=== PATIENT | female | born 1955 | race Caucasian/White ===

== ENCOUNTER 2019-05-14 12:32 | Inpatient (IN) | payer BC ==
--- NOTE | 2019-05-14 13:35 | PDOC ---
History of Present Illness - General Chief Complaint: Respiratory Stated Complaint: COUGH Time Seen by Provider: 05/14/19 13:35 - History of Present Illness Initial Comments: HPI: 64yo F with PMH of HTN, HLD, COPD, smoking presenting with shortness of breath. Patient has been feeling unwell since . On 04/26 she saw her doctor and was prescribed promethazine and azithromycin. She was not improving and called the clinic and was sent a prescription for a medrol dose-tobi. She was not improving yet again and was sent rosa, afrin, and nose drops. On 05/11, she saw her doctor and was given a course of levaquin and prednisone 20mg BID. Patient reports sick contacts as her granddaughters have had RSV. Did get a flu shot this season in February. Is unsure if she is experiencing a COPD exacerbation. Decided to come to the ED when she realized she was dyspneic on exertion last night-- usually she is able to walk up stairs without difficulty, but is now short of breath when doing so. Reports chest tightness. Denies fevers , but endorses chills. Pulmonary: Dr. Hernandez PCP: Dr. Phillips ROS: Constitutional: no fever, no chills HEENT: no throat pain, no dysphagia Cardiovascular: +chest tightness, no palpitations Respiratory: +cough, +shortness of breath Gastrointestinal: +nausea, +vomiting Genitourinary: no dysuria, no hematuria Musculoskeletal: no myalgia, no arthralgia Skin: no rash, no itching Neurologic: +headache, no weakness PE: General: Awake, alert, and fully oriented, in no acute distress Head: No signs of trauma Eyes: EOMI, sclera anicteric ENT: Moist mucus membranes Neck: Normal ROM, supple Lungs: Lungs clear, Normal breath sounds Cardio: Regular rhythm, S1 and S2 present Abdomen: Soft, nontender. No guarding, no rebound, no masses Extremities: Normal range of motion, Distal pulses present, No calf tenderness SKIN: Warm, Dry, normal turgor Neurologic: Cranial nerves II through XII grossly intact. Normal speech ED Course/MDM: DDX including but not limited to viral syndrome, COPD exacerbation, UTI, PNA, influenza, ACS, PE, CHF Labs, EKG, CXR 05/14/19 13:35 EKG: rate 85, QTc 445, NSR patient requested water. Vomited for a second time. Zofran ordered. 05/14/19 15:57 CBC WBC 13.8 K/mm3 (4.0-10.0) H 05/14/19 14:40 RBC 5.98 M/mm3 (3.60-5.2) H 05/14/19 14:40 Hgb 15.4 GM/dL (10.7-15.3) H 05/14/19 14:40 Hct 47.3 % (32.4-45.2) H 05/14/19 14:40 MCV 79.2 fl (80-96) L 05/14/19 14:40 MCH 25.8 pg (25.7-33.7) 05/14/19 14:40 MCHC 32.6 g/dl (32.0-36.0) 05/14/19 14:40 RDW 14.6 % (11.6-15.6) 05/14/19 14:40 Plt Count 276 K/MM3 (134-434) 05/14/19 14:40 MPV 6.7 fl (7.5-11.1) L 05/14/19 14:40 Absolute Neuts (auto) 11.5 K/mm3 (1.5-8.0) H 05/14/19 14:40 Neutrophils % 83.5 % (42.8-82.8) H 05/14/19 14:40 Lymphocytes % 10.5 % (8-40) 05/14/19 14:40 Monocytes % 4.9 % (3.8-10.2) 05/14/19 14:40 Eosinophils % 0.6 % (0-4.5) 05/14/19 14:40 Basophils % 0.5 % (0-2.0) 05/14/19 14:40 Nucleated RBC % 0 % (0-0) 05/14/19 14:40 Mild leukocytosis CMP Sodium 141 mmol/L (136-145) 05/14/19 14:40 Potassium 4.0 mmol/L (3.5-5.1) 05/14/19 14:40 Chloride 103 mmol/L (98-107) 05/14/19 14:40 Carbon Dioxide 30 mmol/L (21-32) 05/14/19 14:40 Anion Gap 8 MMOL/L (8-16) 05/14/19 14:40 BUN 26.3 mg/dL (7-18) H 05/14/19 14:40 Creatinine 1.1 mg/dL (0.55-1.3) 05/14/19 14:40 Est GFR (CKD-EPI)AfAm 61.44 05/14/19 14:40 Est GFR (CKD-EPI)NonAf 53.01 05/14/19 14:40 Random Glucose 116 mg/dL (74-106) H 05/14/19 14:40 Calcium 9.4 mg/dL (8.5-10.1) 05/14/19 14:40 Total Bilirubin 0.8 mg/dL (0.2-1) 05/14/19 14:40 AST 9 U/L (15-37) L 05/14/19 14:40 ALT 25 U/L (13-61) 05/14/19 14:40 Alkaline Phosphatase 107 U/L (45-117) 05/14/19 14:40 Creatine Kinase 46 U/L (26-192) 05/14/19 14:40 Troponin I < 0.02 ng/ml (0.00-0.05) 05/14/19 14:40 B-Natriuretic Peptide 84.7 pg/ml (5-125) 05/14/19 14:40 Total Protein 7.2 g/dl (6.4-8.2) 05/14/19 14:40 Albumin 4.0 g/dl (3.4-5.0) 05/14/19 14:40 Electrolytes unremarkable BUN elevated Cr normal No transaminitis BNp normal Tpn negative UA negative for infection Influenza negative CXR as reported by radiology: " EXAM#: TYPE/EXAM: RESULT: [id number] RAD/CHEST PA LAT Chest : Shortness of breath 2 views of the chest have been submitted. Since the prior study of 01/28/2010 there is no change of an adverse nature. There are clear lungs, normal mediastinum and sharp angles. There is mild hyperaeration. There is slight rotation to the left. Impression: No acute chest pathology. No significant change. " Courtesy call placed to Dr. Phillips, ; per call service, he is not available. Will send microblog to [email or web address] 05/14/19 18:04 Discussed case with inpatient team who accepted patient for admission under Dr. Allen. 05/14/19 18:58 Past History - Past Medical History Allergies/Adverse Reactions: Allergies Allergy/AdvReac Type Severity Reaction Status Date / Time codeine Allergy Verified 05/14/19 12:43 Home Medications: Ambulatory Orders Atorvastatin Calcium [Lipitor] 20 mg PO HS 05/14/19 Budesonide/Formeterol Fumarate [SYMBICORT 160/4.5mcg -] 2 inhaler IN BID Promethazine HCl [Phenergan Plain 6.25 MG/5 ML -] 10 ml PO ASDIR PRN 05/14/19 Verapamil HCl ER [Calan Sr] 240 mg PO DAILY 05/14/19 levoFLOXacin [Levaquin -] 500 mg PO DAILY 05/14/19 predniSONE [Deltasone -] 20 mg PO ASDIR 05/14/19 - Psycho Social/Smoking Cessation Hx Smoking History: Current every day smoker Information on smoking cessation initiated: Yes *Physical Exam - Vital Signs Last Vital Signs Temp Pulse Resp BP Pulse Ox 98 F 100 H 20 133/77 95 05/14/19 12:46 05/14/19 12:46 05/14/19 12:46 05/14/19 12:46 05/14/19 12:46 ED Treatment Course - LABORATORY CBC & Chemistry Diagram: 05/14/19 14:40 05/14/19 14:40 Discharge - Discharge Information Problems reviewed: Yes Clinical Impression/Diagnosis: COPD exacerbation Condition: Guarded Disposition: HOME - Admission Yes - Follow up/Referral Referrals: Kj Phillips MD [Primary Care Provider] - - Patient Discharge Instructions - Post Discharge Activity
[2019-05-14] MEDS ORDERED: ALBUTEROL SO4 2.5/IPRATROPIUM 0.5 INH SOL 3 ML VIAL.NEB. NEB ONE ×2 (13:57→14:42)
[2019-05-14 15:10] LABS: BASO % 0.5 % (0-2.0); EOS % 0.6 % (0-4.5); HEMATOCRIT 47.3 % (32.4-45.2); HEMOGLOBIN 15.4 GM/dL (10.7-15.3); LYMPH % 10.5 % (8-40); MCH 25.8 pg (25.7-33.7); MCHC 32.6 g/dl (32.0-36.0); MEAN CELL VOLUME 79.2 fl (80-96); MEAN PLT VOLUME 6.7 fl (7.5-11.1); MONO % 4.9 % (3.8-10.2); NEUT % 83.5 % (42.8-82.8); PLATELET COUNT 276 K/MM3 (134-434); RBC 5.98 M/mm3 (3.60-5.2); RDW 14.6 % (11.6-15.6); WHITE BLOOD COUNT 13.8 K/mm3 (4.0-10.0)
[2019-05-14 15:22] LABS: INR 1.01 (0.83-1.09); PROTHROMBIN TIME (PATIENT) 11.9 SEC (9.7-13.0)
[2019-05-14 15:52] LABS: BILIRUBIN,TOTAL 0.8 mg/dL (0.2-1); BLOOD UREA NITROGEN 26.3 mg/dL (7-18); CALCIUM 9.4 mg/dL (8.5-10.1); CREATININE 1.1 mg/dL (0.55-1.3); TOT PROT 7.2 g/dl (6.4-8.2)
[2019-05-14] MEDS ORDERED: ONDANSETRON 4 MG/2 ML VIAL IVPUSH ONE (15:55)
[2019-05-14 16:01] LABS: N-TERMINAL BNP 84.7 pg/ml (5-125)
[2019-05-14] MEDS ORDERED: ONDANSETRON 4 MG/2 ML VIAL ONE (16:29)
[2019-05-14] MEDS ORDERED: methylPREDNISolone NA SUCC 125 MG/2 ML VIAL IVPUSH ONE (17:07)
[2019-05-14] MEDS ORDERED: SODIUM CHLORIDE 1,000 ML IV STA (17:12)
--- NOTE | 2019-05-14 17:24 | PDOC ---
Attending Attestation - Resident Resident Name: Beverly Jerry - ED Attending Attestation I have performed the following: I have examined & evaluated the patient, The case was reviewed & discussed with the resident, I agree w/resident's findings & plan, Exceptions are as noted - HPI HPI: 05/14/19 17:23 64 F with h/o HTN, HLD, COPD, presenting to ED with SOB. Pt has been having about 2 weeks of symptoms. Was tx'ed as outpt with Z-pack and levaquin, as well as steroids. However, pt reports persistent symptoms. Denies F/C. Denies chest pain. Pt notes that today she began to also have N+V+D. Denies abdominal pain. - Physicial Exam PE: 05/14/19 17:23 See resident exam - Medical Decision Making 05/14/19 17:24 64 F with likely COPD exacerbation. Has been tx'ed as outpt with steroids and 2 courses of abx, with no improvement. - labs - CXR - Nebs, steroids
[2019-05-14] MEDS ORDERED: methylPREDNISolone NA SUCC 125 MG/2 ML VIAL ONE (17:26)
[2019-05-14 17:49] LABS: EPI CELLS 2.6 /HPF (0-5/HPF); HYALINE CASTS 38 /lpf (0-8); URINE APPEARANCE CLOUDY; URINE BACTERIA 4.5 /hpf (NEGATIVE); URINE BILIRUBIN 2+ (NEGATIVE); URINE COLOR DK YELLOW; URINE GLUCOSE (UA) NEGATIVE (NEGATIVE); URINE KETONE TRACE (NEGATIVE); URINE LEUK ESTERASE NEGATIVE (NEGATIVE); URINE NITRITE NEGATIVE (NEGATIVE); URINE PROTEIN 1+ (NEGATIVE); URINE RBC 2 /hpf (0-4); URINE WBC 2 /hpf (0-5)
[2019-05-14 19:03] LABS: URINE CRYSTALS MANY /hpf
--- NOTE | 2019-05-14 19:18 | PN ---
Teaching Attending Note Name of Resident: Osvaldo Matute ATTENDING PHYSICIAN STATEMENT I saw and evaluated the patient. I reviewed the resident's note and discussed the case with the resident. I agree with the resident's findings and plan as documented. SUBJECTIVE: Patient is a 64 year old woman with a PMH of HTN, HLD, COPD and Tobacco use presenting with shortness of breath. Patient has been feeling unwell since . On 04/26 she saw her doctor and was prescribed promethazine and azithromycin. She was not improving and called the clinic and was sent a prescription for a medrol dose-tobi. She was not improving yet again and was sent rosa, afrin, and nose drops. On 05/11, she saw her doctor and was given a course of levaquin and prednisone 20mg BID. Patient reports sick contacts as her granddaughters have had RSV. Did get a Flu vaccine this season in February. Is unsure if she is experiencing a COPD exacerbation. Decided to come to the ED when she realized she was dyspneic on exertion last night-- usually she is able to walk up stairs without difficulty, but is now short of breath when doing so. Reports chest tightness. Denies fevers, but has chills. Vomited twice and had a couple of loose BMs. No recent travels. Denies alcohol or illicit drug use. OBJECTIVE: Alert Vital Signs Period Temp Pulse Resp BP Sys/Cain Pulse Ox Last 24 Hr 98 F 100 20 133/77 95 HEENT: No Jaundice, eye redness or discharge, PERRLA, EOMI. Dry lips; Normocephalic, atraumatic. External ears are normal and hearing is grossly intact. No nasal discharge. Neck: Supple, nontender. No palpable adenopathy or thyromegaly. No JVD Chest: Good effort. Clear to auscultation and percussion. Heart: Regular. No S3, rub or murmur Abdomen: Not distended, soft, nontender and no HSM. No rebound or guarding. Normal bowel sounds. Ext: Peripheral pulses intact. No leg edema. Skin: Warm and dry. No petechiae, rash or ecchymosis. Neuro: Alert. Oriented x3. CN 2-12 grossly intact. Sensation grossly intact in all four extremities and DTR are symmetric. Psych: Appropriate mood and affect. Good insight. Home Medications Medication Instructions Recorded Atorvastatin Calcium [Lipitor] 20 mg PO HS 05/14/19 Budesonide/Formeterol Fumarate 2 inhaler IN BID 05/14/19 [SYMBICORT 160/4.5mcg -] Promethazine HCl [Phenergan Plain 10 ml PO ASDIR PRN 05/14/19 6.25 MG/5 ML -] Verapamil HCl ER [Calan Sr] 240 mg PO DAILY 05/14/19 levoFLOXacin [Levaquin -] 500 mg PO DAILY 05/14/19 predniSONE [Deltasone -] 20 mg PO ASDIR 05/14/19 Abnormal Lab Results 05/14/19 05/14/19 05/14/19 14:40 14:40 17:03 WBC 13.8 H RBC 5.98 H Hgb 15.4 H Hct 47.3 H MCV 79.2 L MPV 6.7 L Absolute Neuts (auto) 11.5 H Neutrophils % 83.5 H BUN 26.3 H Random Glucose 116 H AST 9 L Urine Protein 1+ H Urine Ketones Trace H Urine Bilirubin 2+ H ASSESSMENT AND PLAN: 1. COPD exacerbation/Viral syndrome - CXR shows hyperinflation with increased interstitial markings. Flu swab negative. EKG shows NSR with no significant ST- T wave changes. Being treated with Duoneb, Symbicort, Solumedrol, Azithromycin and Rocephin. Erythrocytosis likely due to smoking. Hydrate with IV NS gently. Will get ECHO and check HbA1c. Will continue comprehensive care for all of patients comorbid conditions. 2. Tobacco Use Counseled on risks associated with tobacco use. We will provide patient all the necessary assistance to facilitate smoking cessation and prescribe Nicotine patch. 3. Hypertension - Restart suitable outpatient antihypertensive drugs when clinically appropriate. Revise regimen to ensure [id number] excellent BP control and chromosomal disorders counselor patient on the injurious effects of uncontrolled hypertension. Nonpharmacologic measures to control hypertension like weight loss , salt restriction and exercise discussed. Importance of adherence to treatment regimen and attainment of normotension emphasized. 4. DVT prophylaxis - Lovenox 40 mg SQ q 24 hours. 5. Advance directives - Full code
--- NOTE | 2019-05-14 19:52 | HP ---
CHIEF COMPLAINT: SOB PCP: Dr. Phillips HISTORY OF PRESENT ILLNESS: 64 y/o female with PMH HTN, HLD, COPD and an active smoker c/o SOB for 1 month/since Thanksgiving family dinner. She states that her granddaughters and adult son whom live upstairs in their private home were recently ill, including one child with RSV. Initially her primary symptoms were lethargy, vague headache , and cough productive of green/yellow phlegm. On 26 Apr 2019 she visited her PCP and was tx with promethazine and azithromycin. She experienced mild symptom relief but developed SOB. The SOB progressed and she was then rx medrol dose pack along with rosa and afrin. She experienced no symptoms relief and on 11 May 2019 she was rx levaquin and prednisone 20 mg PO BID. She used the steroids for 6 days. The DRIVER resolved early on and her persisting symptoms included cough , lethargy, nausea, vomiting (NBNB) x2, diarrhea x2 (loose, NB), and chills. She did receive her flu shot this year. She denies unusual weight loss. Her last colonoscopy was in 2016 where 2 polyps were removed and she was to return in 5-7 years. Her last mammorgram was Mar 2019 and was negative. She denies receiving a screening chest CT given her smoking hx. She denies recent travel, new foods, new meds/supplements/herbals. She has never had these symptoms before. ER course was notable for: (1) Solumedrol and duonebs x1 adminitered, (2) Zofran adminitered (3) 1 L bolus administered Recent Travel: Denies PAST MEDICAL HISTORY: HTN, HLD, COPD and an active smoker Family history: Mother CAD s/p 4 stents and mitral valve replacement; Father CHF. Denies fam hx of cancer PAST SURGICAL HISTORY: LEFT breast lumpectomy (1999) Social History: Smoking: Current smoker. Contemplative stage of cessation. 1/2 ppd for 45 years Alcohol: Denies Drugs: Denies Retired nurse asset protection assistant. Lives with in private home on ground floor and family lives on 2nd floor: son, [id number], 2 granddaughters 6 yo and 8 months old (Recent RSV). Sexual History: Not currently sexually active ( with chronic back pain). No h/o STI. Allergies Codeine Allergy (Verified 05/14/19 12:43) HOME MEDICATIONS: Medication Instructions Recorded Atorvastatin Calcium [Lipitor] 20 mg PO HS 05/14/19 Budesonide/Formeterol Fumarate 2 inhaler IN BID 05/14/19 [SYMBICORT 160/4.5mcg -] Promethazine HCl [Phenergan Plain 10 ml PO ASDIR PRN 05/14/19 6.25 MG/5 ML -] Verapamil HCl ER [Calan Sr] 240 mg PO DAILY 05/14/19 levoFLOXacin [Levaquin -] 500 mg PO DAILY 05/14/19 predniSONE [Deltasone -] 20 mg PO ASDIR 05/14/19 REVIEW OF SYSTEMS CONSTITUTIONAL: Absent: fever, chills, diaphoresis, generalized weakness, malaise, loss of appetite, weight change HEENT: Absent: rhinorrhea, nasal congestion, throat pain, throat swelling, difficulty swallowing, mouth swelling, ear pain, eye pain, visual changes CARDIOVASCULAR: Absent: chest pain, syncope, palpitations, irregular heart rate, lightheadedness , peripheral edema RESPIRATORY: Absent: cough, shortness of breath, dyspnea with exertion, orthopnea, wheezing, stridor, hemoptysis GASTROINTESTINAL: Absent: abdominal pain, abdominal distension, nausea, vomiting, diarrhea, constipation, melena, hematochezia GENITOURINARY: Absent: dysuria, frequency, urgency, hesitancy, hematuria, flank pain, genital pain MUSCULOSKELETAL: Absent: myalgia, arthralgia, joint swelling, back pain, neck pain SKIN: Absent: rash, itching, pallor HEMATOLOGIC/IMMUNOLOGIC: Absent: easy bleeding, easy bruising, lymphadenopathy, frequent infections ENDOCRINE: Absent: unexplained weight gain, unexplained weight loss, heat intolerance, cold intolerance NEUROLOGIC: Absent: headache, focal weakness or paresthesias, dizziness, unsteady gait, seizure, mental status changes, bladder or bowel incontinence PSYCHIATRIC: Absent: anxiety, depression, suicidal or homicidal ideation, hallucinations. PHYSICAL EXAMINATION Vital Signs - 24 hr 05/14/19 12:46 Temperature 98 F Pulse Rate Repeat 100 H 89 Respiratory 20 Rate Blood Pressure 133/77 O2 Sat by Pulse 95 Oximetry (%) GENERAL: AOx3, in no acute distress, conversing well w/o dyspnea. HEAD: NCAT EYES: ARLET, EOMI, conjunctiva clear. ENT: Ears normal, nares patent, oropharynx clear without exudates. Dry mucous membranes. Nicotine stained teeth. NECK: Normal range of motion, supple without lymphadenopathy, JVD, or masses. LUNGS: CTAB. No wheezes, and no crackles. No accessory muscle use. HEART: RRR s1 s2 ABDOMEN: Soft, BS present in all 4 quadrants, non-distended, no JVD, MUSCULOSKELETAL: No bony deformities or tenderness. No CVA tenderness. UPPER EXTREMITIES: 2+ pulses, warm, well-perfused. No cyanosis. No clubbing. No peripheral edema. LOWER EXTREMITIES: 2+ pulses, warm, well-perfused. No calf tenderness. No peripheral edema. NEUROLOGICAL: No focal deficits. Cranial nerves II-XII intact. Normal speech. Gait not appreciated. PSYCHIATRIC: Cooperative. Good eye contact. Appropriate mood and affect. SKIN: Warm, dry, normal turgor, no rashes or lesions noted, normal capillary refill. Laboratory Results - last 24 hr 05/14/19 05/14/19 05/14/19 14:40 14:40 14:40 WBC 13.8 H RBC 5.98 H Hgb 15.4 H Hct 47.3 H MCV 79.2 L MCH 25.8 MCHC 32.6 RDW 14.6 Plt Count 276 MPV 6.7 L Absolute Neuts (auto) 11.5 H Neutrophils % 83.5 H Lymphocytes % 10.5 Monocytes % 4.9 Eosinophils % 0.6 Basophils % 0.5 Nucleated RBC % 0 PT with INR INR Sodium 141 Potassium 4.0 Chloride 103 Carbon Dioxide 30 Anion Gap 8 BUN 26.3 H Creatinine 1.1 Est GFR (CKD-EPI)AfAm 61.44 Est GFR (CKD-EPI)NonAf 53.01 Random Glucose 116 H Calcium 9.4 Total Bilirubin 0.8 AST 9 L ALT 25 Alkaline Phosphatase 107 Creatine Kinase 46 Troponin I < 0.02 B-Natriuretic Peptide 84.7 Total Protein 7.2 Albumin 4.0 Urine Color Urine Appearance Urine pH Ur Specific [place] Urine Protein Urine Glucose (UA) Urine Ketones Urine Blood Urine Nitrite Urine Bilirubin Urine Urobilinogen Ur Leukocyte Esterase Urine WBC (Auto) Urine RBC (Auto) Urine Casts (Auto) U Pathogenic Cast Auto U Epithel Cells (Auto) Urine Crystals (Auto) Urine Bacteria (Auto) Influenza A (Rapid) Influenza B (Rapid) 05/14/19 05/14/19 05/14/19 14:40 14:55 17:03 WBC RBC Hgb Hct MCV MCH MCHC RDW Plt Count MPV Absolute Neuts (auto) Neutrophils % Lymphocytes % Monocytes % Eosinophils % Basophils % Nucleated RBC % PT with INR 11.90 INR 1.01 Sodium Potassium Chloride Carbon Dioxide Anion Gap BUN Creatinine Est GFR (CKD-EPI)AfAm Est GFR (CKD-EPI)NonAf Random Glucose Calcium Total Bilirubin AST ALT Alkaline Phosphatase Creatine Kinase Troponin I B-Natriuretic Peptide Total Protein Albumin Urine Color Dk yellow Urine Appearance Cloudy Urine pH 5.0 Ur Specific [place] 1.034 Urine Protein 1+ H Urine Glucose (UA) Negative Urine Ketones Trace H Urine Blood Negative Urine Nitrite Negative Urine Bilirubin 2+ H Urine Urobilinogen 1.0 Ur Leukocyte Esterase Negative Urine WBC (Auto) 2 Urine RBC (Auto) 2 Urine Casts (Auto) 38 U Pathogenic Cast Auto 0-2 U Epithel Cells (Auto) 2.6 Urine Crystals (Auto) Many Urine Bacteria (Auto) 4.5 Influenza A (Rapid) Negative Influenza B (Rapid) Negative Current Medications Albuterol/Ipratropium (Duoneb -) 1 amp NEB RQID PRN PRN Reason: Dyspnea Ceftriaxone Sodium (Rocephin -) 1,000 mg IVPUSH DAILY [facility] Enoxaparin Sodium (Lovenox -) 40 mg SQ DAILY [facility] Sodium Chloride (Normal Saline -) 1,000 mls @ 75 mls/hr IV ASDIR NANCY Last Admin: 05/14/19 20:49 Dose: 75 mls/hr Azithromycin 500 mg/ Dextrose 250 mls @ 250 mls/hr IVPB DAILY ONE Stop: 05/15/19 10:59 Azithromycin 250 mg/ Dextrose 250 mls @ 250 mls/hr IVPB DAILY [facility] Methylprednisolone Sodium Succinate (Solu-Medrol -) 40 mg IVPUSH Q8H-IV NANCY EKG shows NSR with no significant ST-T wave changes IMAGING CXR: no acute changes, mild hyperaeration ASSESSMENT/PLAN: 64 y/o female PMH HTN, HLD, COPD and an active smoker c/o SOB for 1 month. # Acute COPD exacerbation 2/2 URI - IVF - Solumedrol 40 mg IV q8h - Duonebs q4h PRN - Azithromycin 500 mg PO on day 1. 250 mg PO QD for 4 days - Rocephin 1 g IV qd - F/u urine legionella - Consult pulmonology - Saturating at 95% but if she desaturates, consider ABG to assess for CO2 retention # Leukocytosis - WBC 13.8 - S/p medrol dose pack - Likely viral illness - CXR clear, UA clear - F/u urine legionella # Azotemia - BUN 26.3 - Likely 2/2 dehydration - Dry mucous membranes, diarrhea x2, vomit x2 # Elevated H/H - H/H 15.4/47.3 # HTN - Cont. curent home regimen of verapamil 240 mg PO QD # HLD - Cont. curent home regimen of [id number] mg HS # F/E/N - NS @ 75 cc/hour - Cont. to monitor - Low sodium diet # DVT prophylaxis - Lovenox 40 mg SQ QD # Disposition - Admit to med/surg Osvaldo Matute MD Visit type - Emergency Visit Emergency Visit: Yes ED Registration Date: 05/14/19 Care time: The patient presented to the Emergency Department on the above date and was hospitalized for further evaluation of their emergent condition. - New Patient This patient is new to me today: Yes Date on this admission: 05/17/19 - Critical Care Critical Care patient: No ATTENDING PHYSICIAN STATEMENT I saw and evaluated the patient. I reviewed the resident's note and discussed the case with the resident. I agree with the resident's findings and plan as documented. SUBJECTIVE: OBJECTIVE: ASSESSMENT AND PLAN:
[2019-05-14] MEDS ORDERED: ALBUTEROL SO4 2.5/IPRATROPIUM 0.5 INH SOL 3 ML VIAL.NEB. NEB PRN (20:39)
[2019-05-14] MEDS: SODIUM CHLORIDE 1,000 ML IV SCH (20:49)
[2019-05-14] MEDS ORDERED: AZITHROMYCIN IVPB 500 MG/250 ML BAG IVPB ONE (21:30)
[2019-05-14] MEDS ORDERED: AZITHROMYCIN IVPB 500 MG in DEXTROSE 5%-WATER - 250 ML IVPB ONE (21:30)
[2019-05-14] MEDS ORDERED: cefTRIAXone SODIUM 1 GM VIAL ONE (22:23)
[2019-05-14] MEDS ORDERED: DEXTROSE 5%-WATER - 50 ML IVPB ONE (22:24)
[2019-05-14] MEDS: CEFTRIAXONE 1 GM in DEXTROSE 5%-WATER - 50 ML IVPB SCH (22:40)
[2019-05-15] MEDS: methylPREDNISolone NA SUCC 40 MG/1 ML VIAL IVPUSH SCH ×3 (02:02→17:22)
[2019-05-15 02:42] VITALS: BMI 29.7
[2019-05-15 09:00] LABS: HEMATOCRIT 40.2 % (32.4-45.2); HEMOGLOBIN 13.2 GM/dL (10.7-15.3); MCH 25.8 pg (25.7-33.7); MCHC 32.9 g/dl (32.0-36.0); MEAN CELL VOLUME 78.5 fl (80-96); MEAN PLT VOLUME 6.8 fl (7.5-11.1); PLATELET COUNT 256 K/MM3 (134-434); RBC 5.12 M/mm3 (3.60-5.2); RDW 15.1 % (11.6-15.6); WHITE BLOOD COUNT 8.5 K/mm3 (4.0-10.0)
[2019-05-15 09:29] LABS: ALBUMIN 3.4 g/dl (3.4-5.0); BILIRUBIN,TOTAL 0.8 mg/dL (0.2-1); BLOOD UREA NITROGEN 22.2 mg/dL (7-18); CREATININE 0.7 mg/dL (0.55-1.3); MAGNESIUM 2.2 mg/dL (1.8-2.4); PHOSPHOROUS 4.1 mg/dL (2.5-4.9); POTASSIUM 4.1 mmol/L (3.5-5.1); TOT PROT 6.3 g/dl (6.4-8.2)
[2019-05-15] MEDS ORDERED: DEXTROSE 5%-WATER - 50 ML IVPB ONE (09:31)
[2019-05-15] MEDS ORDERED: cefTRIAXone SODIUM 1 GM VIAL ONE (09:31)
[2019-05-15] MEDS ORDERED: PT OWN MED DRAWER 7, Y5N ONE (09:31)
[2019-05-15] MEDS: VERAPAMIL HCL 240 MG E.R. TABLET PO SCH (09:46)
[2019-05-15] MEDS: CEFTRIAXONE 1 GM in DEXTROSE 5%-WATER - 50 ML IVPB SCH (09:46)
[2019-05-15] MEDS ORDERED: ENOXAPARIN NA (PORCINE) 40 MG/0.4 ML DISP.SYRIN SQ SCH (10:00)
[2019-05-15] MEDS: AZITHROMYCIN IVPB 250 MG in DEXTROSE 5%-WATER - 250 ML IVPB SCH (10:39)
--- NOTE | 2019-05-15 12:49 | PN ---
Progress Note (short form) - Note Progress Note: Patient is comfortable with no acute distress. Vital Signs Temperature 98.5 F 05/15/19 08:30 Pulse Rate 81 05/15/19 08:30 Respiratory Rate 18 05/15/19 08:30 Blood Pressure 136/75 05/15/19 08:30 O2 Sat by Pulse Oximetry (%) 100 05/14/19 22:00 GENERAL: The patient is awake, alert, and fully oriented, in no acute distress. HEAD: Normal with no signs of trauma. EYES: PERRL, extraocular movements intact, sclera anicteric, conjunctiva clear. ENT: Ears normal, oropharynx clear without exudates, moist mucous membranes. NECK: Trachea midline, full range of motion, supple. LUNGS: decreased BS bl , no wheezes, no crackles, no accessory muscle use. HEART: Regular rate and rhythm, S1, S2 without murmur, rub or gallop. ABDOMEN: Soft, nontender, nondistended, normoactive bowel sounds, no guarding, no rebound, no hepatosplenomegaly, no masses. EXTREMITIES: 2+ pulses, warm, well-perfused, no edema. NEUROLOGICAL: Cranial nerves II through XII grossly intact. Normal speech, gait not observed. PSYCH: Normal mood, normal affect. SKIN: Warm, dry, normal turgor, no rashes or lesions noted CBCD WBC 8.5 K/mm3 (4.0-10.0) 05/15/19 07:57 RBC 5.12 M/mm3 (3.60-5.2) 05/15/19 07:57 Hgb 13.2 GM/dL (10.7-15.3) 05/15/19 07:57 Hct 40.2 % (32.4-45.2) D 05/15/19 07:57 MCV 78.5 fl (80-96) L 05/15/19 07:57 MCHC 32.9 g/dl (32.0-36.0) 05/15/19 07:57 RDW 15.1 % (11.6-15.6) 05/15/19 07:57 Plt Count 256 K/MM3 (134-434) 05/15/19 07:57 MPV 6.8 fl (7.5-11.1) L 05/15/19 07:57 CMP Sodium 138 mmol/L (136-145) 05/15/19 07:57 Potassium 4.1 mmol/L (3.5-5.1) 05/15/19 07:57 Chloride 105 mmol/L (98-107) 05/15/19 07:57 Carbon Dioxide 25 mmol/L (21-32) 05/15/19 07:57 Anion Gap 9 MMOL/L (8-16) 05/15/19 07:57 BUN 22.2 mg/dL (7-18) H 05/15/19 07:57 Creatinine 0.7 mg/dL (0.55-1.3) 05/15/19 07:57 Random Glucose 130 mg/dL (74-106) H 05/15/19 07:57 Calcium 9.0 mg/dL (8.5-10.1) 05/15/19 07:57 Total Bilirubin 0.8 mg/dL (0.2-1) 05/15/19 07:57 AST 10 U/L (15-37) L 05/15/19 07:57 ALT 21 U/L (13-61) 05/15/19 07:57 Alkaline Phosphatase 86 U/L (45-117) 05/15/19 07:57 Total Protein 6.3 g/dl (6.4-8.2) L 05/15/19 07:57 Albumin 3.4 g/dl (3.4-5.0) 05/15/19 07:57 CARDIAC ENZYMES Creatine Kinase 46 U/L (26-192) 05/14/19 14:40 Troponin I < 0.02 ng/ml (0.00-0.05) 05/14/19 14:40 Current Medications Generic Name Dose Route Start Last Admin Trade Name Freq PRN Reason Stop Dose Admin Albuterol Sulfate 1 amp 05/15/19 14:08 Ventolin 0.083% Nebulizer Soln - NEB Q4H PRN SHORT OF BREATH/WHEEZING Albuterol/Ipratropium 1 amp 05/15/19 16:00 05/15/19 16:07 Duoneb - NEB 1 amp RQID NANCY Administration Atorvastatin Calcium 20 mg 05/15/19 22:00 Lipitor - PO HS NANCY Budesonide/Formoterol Fumarate 2 puff 05/15/19 22:00 Symbicort 160/4.5mcg - IH BID NANCY Sodium Chloride 1,000 mls @ 75 mls/hr 05/14/19 20:45 05/15/19 16:00 Normal Saline - IV 75 mls/hr ASDIR NANCY Administration Azithromycin 250 mg/ Dextrose 250 mls @ 250 mls/hr 05/15/19 10:00 05/15/19 10 :39 IVPB 250 mls/hr DAILY NANCY Administration Ceftriaxone Sodium 1 gm/ 50 mls @ 100 mls/hr 05/14/19 21:30 05/15/19 09:46 Dextrose IVPB 100 mls/hr DAILY NANCY Administration Methylprednisolone Sodium Succinate 40 mg 05/15/19 02:00 05/15/19 17:22 Solu-Medrol - IVPUSH 40 mg Q8H-IV NANCY Administration Verapamil HCl 240 mg 05/15/19 10:00 05/15/19 09:46 Calan Sr - PO 240 mg DAILY NANCY Administration Home Medications Medication Instructions Recorded Atorvastatin Calcium [Lipitor] 20 mg PO HS 05/14/19 Budesonide/Formeterol Fumarate 2 inhaler IN BID 05/14/19 [SYMBICORT 160/4.5mcg -] Promethazine HCl [Phenergan Plain 10 ml PO ASDIR PRN 05/14/19 6.25 MG/5 ML -] Verapamil HCl ER [Calan Sr] 240 mg PO DAILY 05/14/19 levoFLOXacin [Levaquin -] 500 mg PO DAILY 05/14/19 predniSONE [Deltasone -] 20 mg PO ASDIR 05/14/19 Assesmant and plan: Patient is a 64 y/o female with PMHx HTN, HLD, COPD and an active smoker presented with SOb with worsening symptoms x 1 month. #Acute COPD Exacerbation on neb. treatment , IV medrol ,symbicort inh, O2 to keep SpO2>90% #Acute Bronchitis: on Rocephin/zithromax continue #HTN # continue meds #Hyperlipidemia #Smoking dependecy: smoking cessation discussed, offered nicotine patch but patient refused # Capillary fragility syndrome : refusing Ac DVT: pt would like to defer subcutaneous Lovenox , agrees to ambulate frequently, since was diagnosed with capillary fragility syndrome ,she is mobile , refusing AC Visit type - Emergency Visit Emergency Visit: Yes ED Registration Date: 05/14/19 Care time: The patient presented to the Emergency Department on the above date and was hospitalized for further evaluation of their emergent condition. - New Patient This patient is new to me today: Yes Date on this admission: 05/15/19 - Critical Care Critical Care patient: No - Discharge Referral Referred to [facility] No
--- NOTE | 2019-05-15 14:05 | CON.PULM ---
Consult Consult Specialty:: PULMONARY Referred by:: Dr Mcconnell Reason for Consultation:: shortness of breath - History of Present Illness Chief Complaint: shortness of breath History of Present Illness: 64yo female with h/o HTN, hyperlipidemia, COPD, smoker who was admitted with worsening shortness of breath x 1 month. Grandchildren were sick with RSV. Developed shortness of breath and chest tightness, cough productive of green sputum. No fevers, chills or sweats. Was prescribed 2 courses of antibiotics and steroids without significant improvement. Started smoking as a teenager, smoked on average 1 PPD now down to 1/2 PPD. - History Source History Provided By: Patient, Medical Record Limitations to Obtaining History: No Limitations - Past Medical History Cardio/Vascular: Yes: HTN, Hyperlipdemia Pulmonary: Yes: COPD - Alcohol/Substance Use Hx Alcohol Use: No - Smoking History Smoking history: Current every day smoker Have you smoked in the past 12 months: Yes Aproximately how many cigarettes per day: 6 Home Medications - Allergies Allergies/Adverse Reactions: Allergies Allergy/AdvReac Type Severity Reaction Status Date / Time codeine Allergy Verified 05/14/19 12:43 - Home Medications Home Medications: Ambulatory Orders Atorvastatin Calcium [Lipitor] 20 mg PO HS 05/14/19 Budesonide/Formeterol Fumarate [SYMBICORT 160/4.5mcg -] 2 inhaler IN BID Promethazine HCl [Phenergan Plain 6.25 MG/5 ML -] 10 ml PO ASDIR PRN 05/14/19 Verapamil HCl ER [Calan Sr] 240 mg PO DAILY 05/14/19 levoFLOXacin [Levaquin -] 500 mg PO DAILY 05/14/19 predniSONE [Deltasone -] 20 mg PO ASDIR 05/14/19 Review of Systems - Review of Systems Constitutional: reports: Weakness. denies: Chills, Fever Eyes: denies: Recent Change in Vision HENT: denies: Nasal Congestion, Throat Pain Neck: denies: Stiffness, Tenderness Cardiovascular: reports: Chest Pain, Shortness of Breath. denies: Edema, Palpitations Respiratory: reports: Cough, SOB on Exertion. denies: Hemoptysis, Wheezing Gastrointestinal: reports: Diarrhea, Vomiting Genitourinary: denies: Dysuria, Hematuria Neurological: denies: Dizziness, Headache Endocrine: denies: Unexplained Weight Loss Physical Exam Vital Sings: Vital Signs Temperature 98.5 F 05/15/19 08:30 Pulse Rate 81 05/15/19 08:30 Respiratory Rate 18 05/15/19 08:30 Blood Pressure 136/75 05/15/19 08:30 O2 Sat by Pulse Oximetry (%) 96 05/15/19 08:30 Constitutional: Yes: Calm Eyes: Yes: Conjunctiva Clear, EOM Intact HENT: Yes: Atraumatic, Normocephalic Neck: Yes: Supple, Trachea Midline Cardiovascular: Yes: Regular Rate and Rhythm Respiratory: Yes: Poor Air Entry ...Clubbing: No Gastrointestinal: Yes: Normal Bowel Sounds, Soft. No: Tenderness Edema: No Neurological: Yes: Alert, Oriented Labs: CBC, BMP 05/15/19 07:57 05/15/19 07:57 Imaging - Results Chest X-ray: Report Reviewed, Image Reviewed (no infiltrates) Problem List - Problems (1) COPD exacerbation Code(s): J44.1 - CHRONIC OBSTRUCTIVE PULMONARY DISEASE W (ACUTE) EXACERBATION Assessment/Plan Acute COPD Exacerbation Acute Bronchitis HTN Hyperlipidemia Smoker - IV medrol - inhaled bronchodilators standing and PRN - symbicort - O2 to keep SpO2>90% - smoking cessation discussed - pt would like to defer subcutaneous heparin, agrees to ambulate frequently Thank you for this consult Ar Milan MD
[2019-05-15] MEDS ORDERED: ALBUTEROL SO4 0.083% IH SOL 2.5 MG/3 ML VIAL.NEB. NEB PRN (14:08)
--- NOTE | 2019-05-15 14:19 | EKG ---
Test Reason : Blood Pressure : / mmHG Vent. Rate : 085 BPM Atrial Rate : 085 BPM P-R Int : 134 ms QRS Dur : 082 ms QT Int : 374 ms P-R-T Axes : 073 085 074 degrees QTc Int : 445 ms NORMAL SINUS RHYTHM NORMAL ECG WHEN COMPARED WITH ECG OF 30-JAN-2010 04:20, VENT. RATE HAS INCREASED BY 34 BPM Confirmed by ARNEL WHALEN MD ([id number]) on 05/15/2019 2:19:24 PM Referred By: Confirmed By:ARNEL WHALEN MD
[2019-05-15] MEDS: SODIUM CHLORIDE 1,000 ML IV SCH ×2 (16:00→21:20)
[2019-05-15] MEDS: ALBUTEROL SO4 2.5/IPRATROPIUM 0.5 INH SOL 3 ML VIAL.NEB. NEB SCH ×2 (16:07→20:00)
[2019-05-15] MEDS: BUDESONIDE/FORMETEROL FUMARATE 160/4.5 mcg INHALER IH SCH (21:20)
[2019-05-15] MEDS: ATORVASTATIN CA 20 MG TABLET (FP) PO SCH (21:20)
[2019-05-16] MEDS: methylPREDNISolone NA SUCC 40 MG/1 ML VIAL IVPUSH SCH ×3 (02:51→17:23)
[2019-05-16] MEDS: SODIUM CHLORIDE 1,000 ML IV SCH ×2 (05:54→22:33)
[2019-05-16] MEDS: ALBUTEROL SO4 2.5/IPRATROPIUM 0.5 INH SOL 3 ML VIAL.NEB. NEB SCH ×4 (07:55→22:48)
--- NOTE | 2019-05-16 08:11 | PN ---
Physical Exam: SUBJECTIVE: Patient seen and examined at bedside. Patient endorses feeling better today. She endorses cough productive of a small amount of green sputum. OBJECTIVE: Vital Signs Period Temp Pulse Resp BP Sys/Cain Pulse Ox Last 24 Hr 97.4 F-98.5 F 72-100 18-20 115-141/53-75 96-96 GENERAL: The patient is awake, alert, and fully oriented, in no acute distress. HEAD: Normal with no signs of trauma. ENT: Ears normal, nares patent, oropharynx clear without exudates, moist mucous membranes. NECK: Trachea midline, full range of motion, supple. LUNGS: Breath sounds equal, clear to auscultation bilaterally. Decreased breath sounds bilaterally. HEART: Regular rate and rhythm, S1, S2 without murmur, rub or gallop. ABDOMEN: Soft, nontender, nondistended, normoactive bowel sounds, no guarding, no rebound, no hepatosplenomegaly, no masses. EXTREMITIES: 2+ pulses, warm, well-perfused, no edema. NEUROLOGICAL: Cranial nerves II through XII grossly intact. Normal speech, gait not observed. Laboratory Results - last 24 hr 05/15/19 05/15/19 07:57 07:57 WBC 8.5 RBC 5.12 Hgb 13.2 Hct 40.2 D MCV 78.5 L MCH 25.8 MCHC 32.9 RDW 15.1 Plt Count 256 MPV 6.8 L Sodium 138 Potassium 4.1 Chloride 105 Carbon Dioxide 25 Anion Gap 9 BUN 22.2 H Creatinine 0.7 Est GFR (CKD-EPI)AfAm 106.12 Est GFR (CKD-EPI)NonAf 91.56 Random Glucose 130 H Calcium 9.0 Phosphorus 4.1 Magnesium 2.2 Total Bilirubin 0.8 AST 10 L ALT 21 Alkaline Phosphatase 86 Total Protein 6.3 L Albumin 3.4 Active Medications Generic Name Dose Route Start Last Admin Trade Name Freq PRN Reason Stop Dose Admin Albuterol Sulfate 1 amp 05/15/19 14:08 Ventolin 0.083% Nebulizer Soln - NEB Q4H PRN SHORT OF BREATH/WHEEZING Albuterol/Ipratropium 1 amp 05/15/19 16:00 05/15/19 20:00 Duoneb - NEB 1 amp RQID NANCY Administration Atorvastatin Calcium 20 mg 05/15/19 22:00 05/15/19 21:20 Lipitor - PO 20 mg HS NANCY Administration Budesonide/Formoterol Fumarate 2 puff 05/15/19 22:00 05/15/19 21:20 Symbicort 160/4.5mcg - IH 2 puff BID NANCY Administration Sodium Chloride 1,000 mls @ 75 mls/hr 05/14/19 20:45 05/16/19 05:54 Normal Saline - IV 75 mls/hr ASDIR NANCY Administration Azithromycin 250 mg/ Dextrose 250 mls @ 250 mls/hr 05/15/19 10:00 05/15/19 10 :39 IVPB 250 mls/hr DAILY NANCY Administration Ceftriaxone Sodium 1 gm/ 50 mls @ 100 mls/hr 05/14/19 21:30 05/15/19 09:46 Dextrose IVPB 100 mls/hr DAILY NANCY Administration Methylprednisolone Sodium Succinate 40 mg 05/15/19 02:00 05/16/19 02:51 Solu-Medrol - IVPUSH 40 mg Q8H-IV NANCY Administration Verapamil HCl 240 mg 05/15/19 10:00 05/15/19 09:46 Calan Sr - PO 240 mg DAILY NANCY Administration ASSESSMENT/PLAN: The patient is a 64 y/o female PMH HTN, HLD, COPD and an active smoker c/o SOB for 1 month. # Acute COPD exacerbation 2/2 URI -improving on current treatment -continue with Solumedrol 40 mg IV q8h -Duonebs QID NANCY -Azithromycin 500 mg PO on day 1. 250 mg PO QD for 4 days (day3/5) -Rocephin 1 g IV qd -Pulmonology onboard. Likely will switch patient to PO steroids tomorrow. # Leukocytosis likely 2/2 steroids/ URI -normalized yesterday -S/p medrol dose pack -Likely viral illness -CXR clear, UA clear -urine antigens for PNA negative # Azotemia -BUN improving -N/V resolved -encouraged PO intake and hydration -NS @ 75 # HTN -Cont. curent home regimen of verapamil 240 mg PO QD # HLD -Cont. curent home regimen of [id number] mg HS # F/E/N -NS @ 75 cc/hour -monitor lytes -Low sodium diet # DVT prophylaxis -Lovenox 40 mg SQ QD # Disposition -Admit to med/surg -possible d/c Anil/ early Visit type - Emergency Visit Emergency Visit: Yes ED Registration Date: 05/14/19 Care time: The patient presented to the Emergency Department on the above date and was hospitalized for further evaluation of their emergent condition. - New Patient This patient is new to me today: Yes Date on this admission: 05/16/19 - Critical Care Critical Care patient: No ATTENDING PHYSICIAN STATEMENT I saw and evaluated the patient. I reviewed the resident's note and discussed the case with the resident. I agree with the resident's findings and plan as documented. SUBJECTIVE: OBJECTIVE: ASSESSMENT AND PLAN:
[2019-05-16] MEDS ORDERED: cefTRIAXone SODIUM 1 GM VIAL ONE (08:48)
[2019-05-16] MEDS ORDERED: DEXTROSE 5%-WATER - 50 ML IVPB ONE (08:48)
[2019-05-16] MEDS: VERAPAMIL HCL 240 MG E.R. TABLET PO SCH (09:13)
[2019-05-16] MEDS: BUDESONIDE/FORMETEROL FUMARATE 160/4.5 mcg INHALER IH SCH ×2 (09:17→22:35)
[2019-05-16] MEDS: CEFTRIAXONE 1 GM in DEXTROSE 5%-WATER - 50 ML IVPB SCH (09:21)
[2019-05-16] MEDS: AZITHROMYCIN IVPB 250 MG in DEXTROSE 5%-WATER - 250 ML IVPB SCH (10:36)
--- NOTE | 2019-05-16 12:27 | PN ---
Progress Note (short form) - Note Progress Note: PULMONARY States breathing better today but still not at baseline. Vital Signs Period Temp Pulse Resp BP Sys/Cain Pulse Ox Last 24 Hr 97.4 F-98.6 F 72-100 18-20 115-146/53-71 94-96 Gen: NAD at rest Heart: RRR Lung: better air entry Abd: soft, nontender Ext: no edema CBC, BMP 05/15/19 07:57 05/15/19 07:57 Active Medications Albuterol Sulfate (Ventolin 0.083% Nebulizer Soln -) 1 amp NEB Q4H PRN PRN Reason: SHORT OF BREATH/WHEEZING Albuterol/Ipratropium (Duoneb -) 1 amp NEB RQID [facility] Last Admin: 05/16/19 07:55 Dose: 1 amp Atorvastatin Calcium (Lipitor -) 20 mg PO HS [facility] Last Admin: 05/15/19 21:20 Dose: 20 mg Budesonide/Formoterol Fumarate (Symbicort 160/4.5mcg -) 2 puff IH BID [facility] Last Admin: 05/16/19 09:17 Dose: 2 puff Sodium Chloride (Normal Saline -) 1,000 mls @ 75 mls/hr IV ASDIR [facility] Last Admin: 05/16/19 05:54 Dose: 75 mls/hr Azithromycin 250 mg/ Dextrose 250 mls @ 250 mls/hr IVPB DAILY [facility] Last Admin: 05/16/19 10:36 Dose: 250 mls/hr Ceftriaxone Sodium 1 gm/ (Dextrose) 50 mls @ 100 mls/hr IVPB DAILY [facility] Last Admin: 05/16/19 09:21 Dose: 100 mls/hr Methylprednisolone Sodium Succinate (Solu-Medrol -) 40 mg IVPUSH Q8H-IV [facility] Last Admin: 05/16/19 09:13 Dose: 40 mg Verapamil HCl (Calan Sr -) 240 mg PO DAILY [facility] Last Admin: 05/16/19 09:13 Dose: 240 mg A/P Acute COPD Exacerbation Acute Bronchitis HTN Hyperlipidemia Smoker - continue medrol at current dose - can likely change steroids to PO prednisone 40mg daily in AM with slow taper - inhaled bronchodilators standing and PRN - symbicort - O2 to keep SpO2>90% - smoking cessation discussed - pt would like to defer subcutaneous heparin, agrees to ambulate frequently - likely can d/c home in AM Problem List - Problems (1) COPD exacerbation Code(s): J44.1 - CHRONIC OBSTRUCTIVE PULMONARY DISEASE W (ACUTE) EXACERBATION
--- NOTE | 2019-05-16 15:24 | PN ---
Teaching Attending Note Name of Resident: Yazan Adhikari ATTENDING PHYSICIAN STATEMENT I saw and evaluated the patient. I reviewed the resident's note and discussed the case with the resident. I agree with the resident's findings and plan as documented. SUBJECTIVE: Patient is comfortable but feels shortness of breath. Vital Signs Temperature 98.6 F 05/16/19 09:01 Pulse Rate 76 05/16/19 09:01 Respiratory Rate 18 05/16/19 09:01 Blood Pressure 146/71 05/16/19 09:01 O2 Sat by Pulse Oximetry (%) 94 L 05/16/19 09:00 GENERAL: The patient is awake, alert, and fully oriented, in no acute distress. HEAD: Normal with no signs of trauma. EYES: PERRL, extraocular movements intact, sclera anicteric, conjunctiva clear. ENT: Ears normal, oropharynx clear without exudates, moist mucous membranes. NECK: Trachea midline, full range of motion, supple. LUNGS: decreased BS bl , no wheezes, no crackles, no accessory muscle use. HEART: Regular rate and rhythm, S1, S2 without murmur, rub or gallop. ABDOMEN: Soft, nontender, nondistended, normoactive bowel sounds, no guarding, no rebound, no hepatosplenomegaly, no masses. EXTREMITIES: 2+ pulses, warm, well-perfused, no edema. NEUROLOGICAL: Cranial nerves II through XII grossly intact. Normal speech, gait not observed. PSYCH: Normal mood, normal affect. SKIN: Warm, dry, normal turgor, no rashes or lesions noted CBCD WBC 8.5 K/mm3 (4.0-10.0) 05/15/19 07:57 RBC 5.12 M/mm3 (3.60-5.2) 05/15/19 07:57 Hgb 13.2 GM/dL (10.7-15.3) 05/15/19 07:57 Hct 40.2 % (32.4-45.2) D 05/15/19 07:57 MCV 78.5 fl (80-96) L 05/15/19 07:57 MCHC 32.9 g/dl (32.0-36.0) 05/15/19 07:57 RDW 15.1 % (11.6-15.6) 05/15/19 07:57 Plt Count 256 K/MM3 (134-434) 05/15/19 07:57 MPV 6.8 fl (7.5-11.1) L 05/15/19 07:57 CMP Sodium 138 mmol/L (136-145) 05/15/19 07:57 Potassium 4.1 mmol/L (3.5-5.1) 05/15/19 07:57 Chloride 105 mmol/L (98-107) 05/15/19 07:57 Carbon Dioxide 25 mmol/L (21-32) 05/15/19 07:57 Anion Gap 9 MMOL/L (8-16) 05/15/19 07:57 BUN 22.2 mg/dL (7-18) H 05/15/19 07:57 Creatinine 0.7 mg/dL (0.55-1.3) 05/15/19 07:57 Random Glucose 130 mg/dL (74-106) H 05/15/19 07:57 Calcium 9.0 mg/dL (8.5-10.1) 05/15/19 07:57 Total Bilirubin 0.8 mg/dL (0.2-1) 05/15/19 07:57 AST 10 U/L (15-37) L 05/15/19 07:57 ALT 21 U/L (13-61) 05/15/19 07:57 Alkaline Phosphatase 86 U/L (45-117) 05/15/19 07:57 Total Protein 6.3 g/dl (6.4-8.2) L 05/15/19 07:57 Albumin 3.4 g/dl (3.4-5.0) 05/15/19 07:57 CARDIAC ENZYMES Creatine Kinase 46 U/L (26-192) 05/14/19 14:40 Troponin I < 0.02 ng/ml (0.00-0.05) 05/14/19 14:40 Home Medications Medication Instructions Recorded Atorvastatin Calcium [Lipitor] 20 mg PO HS 05/14/19 Budesonide/Formeterol Fumarate 2 inhaler IN BID 05/14/19 [SYMBICORT 160/4.5mcg -] Promethazine HCl [Phenergan Plain 10 ml PO ASDIR PRN 05/14/19 6.25 MG/5 ML -] Verapamil HCl ER [Calan Sr] 240 mg PO DAILY 05/14/19 levoFLOXacin [Levaquin -] 500 mg PO DAILY 05/14/19 predniSONE [Deltasone -] 20 mg PO ASDIR 05/14/19 Current Medications Generic Name Dose Route Start Last Admin Trade Name Freq PRN Reason Stop Dose Admin Albuterol Sulfate 1 amp 05/15/19 14:08 Ventolin 0.083% Nebulizer Soln - NEB Q4H PRN SHORT OF BREATH/WHEEZING Albuterol/Ipratropium 1 amp 05/15/19 16:00 05/16/19 12:28 Duoneb - NEB 1 amp RQID NANCY Administration Atorvastatin Calcium 20 mg 05/15/19 22:00 05/15/19 21:20 Lipitor - PO 20 mg HS NANCY Administration Budesonide/Formoterol Fumarate 2 puff 05/15/19 22:00 05/16/19 09:17 Symbicort 160/4.5mcg - IH 2 puff BID NANCY Administration Sodium Chloride 1,000 mls @ 75 mls/hr 05/14/19 20:45 05/16/19 05:54 Normal Saline - IV 75 mls/hr ASDIR NANCY Administration Azithromycin 250 mg/ Dextrose 250 mls @ 250 mls/hr 05/15/19 10:00 05/16/19 10 :36 IVPB 250 mls/hr DAILY NANCY Administration Ceftriaxone Sodium 1 gm/ 50 mls @ 100 mls/hr 05/14/19 21:30 05/16/19 09:21 Dextrose IVPB 100 mls/hr DAILY NANCY Administration Methylprednisolone Sodium Succinate 40 mg 05/15/19 02:00 05/16/19 09:13 Solu-Medrol - IVPUSH 40 mg Q8H-IV NANCY Administration Verapamil HCl 240 mg 05/15/19 10:00 05/16/19 09:13 Calan Sr - PO 240 mg DAILY NANCY Administration Assessment and plan: Patient is a 64 y/o female with PMHx HTN, HLD, COPD and an active smoker presented with SOb with worsening symptoms x 1 month. #Acute COPD Exacerbation on neb. treatment , IV medrol ,symbicort inh, O2 to keep SpO2>90% #Acute Bronchitis: on Rocephin/zithromax continue #HTN continue meds #Hyperlipidemia conrinue lipitor #Smoking dependency: smoking cessation discussed, offered nicotine patch but patient refused # Capillary fragility syndrome : refusing Ac DVT: pt would like to defer subcutaneous Lovenox , agrees to ambulate frequently , since was diagnosed with capillary fragility syndrome ,she is mobile , refusing AC possible dc in am if stable
[2019-05-16] MEDS: ATORVASTATIN CA 20 MG TABLET (FP) PO SCH (22:32)
[2019-05-17] MEDS: methylPREDNISolone NA SUCC 40 MG/1 ML VIAL IVPUSH SCH ×2 (01:59→09:46)
[2019-05-17] MEDS: ALBUTEROL SO4 2.5/IPRATROPIUM 0.5 INH SOL 3 ML VIAL.NEB. NEB SCH ×2 (08:17→12:06)
[2019-05-17] MEDS ORDERED: PT OWN MED DRAWER 7, Y5N ONE (09:39)
[2019-05-17] MEDS ORDERED: cefTRIAXone SODIUM 1 GM VIAL ONE (09:39)
[2019-05-17] MEDS ORDERED: DEXTROSE 5%-WATER - 50 ML IVPB ONE (09:40)
[2019-05-17 09:44] VITALS: PULSE 83; TEMP 98.6
[2019-05-17] MEDS: BUDESONIDE/FORMETEROL FUMARATE 160/4.5 mcg INHALER IH SCH (09:45)
[2019-05-17] MEDS: VERAPAMIL HCL 240 MG E.R. TABLET PO SCH (09:46)
[2019-05-17] MEDS: CEFTRIAXONE 1 GM in DEXTROSE 5%-WATER - 50 ML IVPB SCH (09:46)
--- NOTE | 2019-05-17 10:26 | DS ---
Physical Exam: SUBJECTIVE: Patient seen and examined OBJECTIVE: Vital Signs Period Temp Pulse Resp BP Sys/Cain Pulse Ox Last 24 Hr 98 F-98.6 F 70-83 18-20 117-140/49-86 95 PHYSICAL EXAM GENERAL: The patient is awake, alert, and fully oriented, in no acute distress. HEAD: Normal with no signs of trauma. EYES: PERRL, extraocular movements intact, sclera anicteric, conjunctiva clear. ENT: Ears normal, nares patent, oropharynx clear without exudates, moist mucous membranes. NECK: Trachea midline, full range of motion, supple. LUNGS: Breath sounds equal, clear to auscultation bilaterally, no wheezes, no crackles, no accessory muscle use. HEART: Regular rate and rhythm, S1, S2 without murmur, rub or gallop. ABDOMEN: Soft, nontender, nondistended, normoactive bowel sounds, no guarding, no rebound, no hepatosplenomegaly, no masses. EXTREMITIES: 2+ pulses, warm, well-perfused, no edema. NEUROLOGICAL: Cranial nerves II through XII grossly intact. Normal speech, gait not observed. PSYCH: Normal mood, normal affect. SKIN: Warm, dry, normal turgor, no rashes or lesions noted. LABS HOSPITAL COURSE: Date of Admission:05/14/19 Date of Discharge: 05/17/19 Discharge Summary Problems reviewed: Yes Reason For Visit: ACUTE EXACERBATION OF CHRONIC OBSTRUCTIVE PUL Current Active Problems COPD exacerbation (Acute) Condition: Improved - Instructions Diet, Activity, Other Instructions: YOUR VISIT You came to the hospital because you were feeling short of breath. You were admitted to the hospital for acute exacerbation of chronic obstructive pulmonary disease. While here you were seen by a lung specialist. You are now stable to return home. MEDICATIONS Please continue to take your home medications as prescribed. *NEW MEDICATION* You will have to complete a steroid taper. Please take predisone as instructed below: May 18, 2019 - May 27, 2019, take 40 mg predisone by mouth once a day May 28, 2019 - June 01, 2019 - take 30 mg predisone by mouth once a day June 02, 2019 - June 06, 2019 - take 20 mg predisone by mouth once a day June 07, 2019 - June 11, 2019 - take 10 mg predisone by mouth once a day You may stop taking prednisone on June 12, 2019 ADDITIONAL CARE Please make an appointment to see your primary care provider, Dr. Phillips, 1 week from today. Please make an appointment to see a director of radiology 1 week from today. We have provided a referral to Dr. Hernandez. ADDITIONAL INFORMATION Please call 911 or come directly to the emergency department if you experience unusual headache, vision change, shortness of breath, chest pain, numbness, tingling, loss of alertness/awareness, loss of function, unusual bleeding or any alarming symptoms. Referrals: Kj Phillips MD [Primary Care Provider] - Kurt Hernandez MD [Staff Physician] - - Home Medications Comprehensive Discharge Medication List: Ambulatory Orders Atorvastatin Calcium [Lipitor] 20 mg PO HS 05/14/19 Budesonide/Formeterol Fumarate [SYMBICORT 160/4.5mcg -] 2 inhaler IN BID Promethazine HCl [Phenergan Plain 6.25 MG/5 ML -] 10 ml PO ASDIR PRN 05/14/19 Verapamil HCl ER [Calan Sr] 240 mg PO DAILY 05/14/19 levoFLOXacin [Levaquin -] 500 mg PO DAILY 05/14/19 predniSONE [Deltasone -] 20 mg PO ASDIR 05/14/19 - Discharge Referral Referred to [facility] No ATTENDING PHYSICIAN STATEMENT I saw and evaluated the patient. I reviewed the resident's note and discussed the case with the resident. I agree with the resident's findings and plan as documented. SUBJECTIVE: OBJECTIVE: ASSESSMENT AND PLAN:
--- NOTE | 2019-05-17 11:05 | PN ---
Progress Note (short form) - Note Progress Note: OOB to chair. Overall feels better. Still with some sore throat. Intake & Output 05/14/19 05/15/19 05/16/19 05/17/19 23:59 23:59 23:59 23:59 Intake Total 525 1200 2925 950 Balance 525 1200 2925 950 Weight 157 lb 3.2 oz Last Vital Signs Temp Pulse Resp BP Pulse Ox 98.6 F 83 20 124/54 L 95 05/17/19 09:42 05/17/19 09:42 05/17/19 09:42 05/17/19 09:42 05/16/19 21:00 Active Medications Albuterol Sulfate (Ventolin 0.083% Nebulizer Soln -) 1 amp NEB Q4H PRN PRN Reason: SHORT OF BREATH/WHEEZING Albuterol/Ipratropium (Duoneb -) 1 amp NEB RQID [facility] Last Admin: 05/17/19 08:17 Dose: 1 amp Atorvastatin Calcium (Lipitor -) 20 mg PO HS [facility] Last Admin: 05/16/19 22:32 Dose: 20 mg Budesonide/Formoterol Fumarate (Symbicort 160/4.5mcg -) 2 puff IH BID [facility] Last Admin: 05/17/19 09:45 Dose: 2 puff Sodium Chloride (Normal Saline -) 1,000 mls @ 75 mls/hr IV ASDIR [facility] Last Admin: 05/16/19 22:33 Dose: 75 mls/hr Azithromycin 250 mg/ Dextrose 250 mls @ 250 mls/hr IVPB DAILY [facility] Last Admin: 05/16/19 10:36 Dose: 250 mls/hr Ceftriaxone Sodium 1 gm/ (Dextrose) 50 mls @ 100 mls/hr IVPB DAILY [facility] Last Admin: 05/17/19 09:46 Dose: 100 mls/hr Methylprednisolone Sodium Succinate (Solu-Medrol -) 40 mg IVPUSH Q8H-IV [facility] Last Admin: 05/17/19 09:46 Dose: 40 mg Verapamil HCl (Calan Sr -) 240 mg PO DAILY [facility] Last Admin: 05/17/19 09:46 Dose: 240 mg Gen: NAD at rest Heart: RRR Lung: good air entry, no wheeze Abd: soft, nontender Ext: no edema A/P Acute COPD Exacerbation Acute Bronchitis HTN Hyperlipidemia Smoker - continue medrol at current dose - can likely change steroids to PO prednisone 40mg daily in AM with slow taper - inhaled bronchodilators standing and PRN - symbicort - O2 to keep SpO2>90% - smoking cessation discussed - pt would like to defer subcutaneous heparin, agrees to ambulate frequently - likely can d/c home in AM Problem List - Problems (1) COPD exacerbation Code(s): J44.1 - CHRONIC OBSTRUCTIVE PULMONARY DISEASE W (ACUTE) EXACERBATION - Prednisone taper, starting at 40mg - inhaled bronchodilators standing and PRN: Can prescribe Albuterol nebulizers as the patient's has a home nebulizer - Symbicort BID - smoking cessation discussed - No there Pulmonary contraindication for DC planning Dr Medina
[2019-05-17] MEDS: AZITHROMYCIN IVPB 250 MG in DEXTROSE 5%-WATER - 250 ML IVPB SCH (11:19)
--- NOTE | 2019-05-17 11:25 | PN ---
Teaching Attending Note Name of Resident: Osvaldo Matute ATTENDING PHYSICIAN STATEMENT I saw and evaluated the patient. I reviewed the resident's note and discussed the case with the resident. I agree with the resident's findings and plan as documented. SUBJECTIVE: Patient is feeling better with no cute distress, feeling better, would like to go home Vital Signs Temperature 98.6 F 05/17/19 09:42 Pulse Rate 83 05/17/19 09:42 Respiratory Rate 20 05/17/19 09:42 Blood Pressure 124/54 L 05/17/19 09:42 O2 Sat by Pulse Oximetry (%) 95 05/16/19 21:00 GENERAL: The patient is awake, alert, and fully oriented, in no acute distress. HEAD: Normal with no signs of trauma. EYES: PERRL, extraocular movements intact, sclera anicteric, conjunctiva clear. ENT: Ears normal, oropharynx clear without exudates, moist mucous membranes. NECK: Trachea midline, full range of motion, supple. LUNGS: decreased BS bl , no wheezes, no crackles, no accessory muscle use. HEART: Regular rate and rhythm, S1, S2 without murmur, rub or gallop. ABDOMEN: Soft, nontender, nondistended, normoactive bowel sounds, no guarding, no rebound, no hepatosplenomegaly, no masses. EXTREMITIES: 2+ pulses, warm, well-perfused, no edema. NEUROLOGICAL: Cranial nerves II through XII grossly intact. Normal speech, gait not observed. PSYCH: Normal mood, normal affect. SKIN: Warm, dry, normal turgor, no rashes or lesions noted CBCD WBC 8.5 K/mm3 (4.0-10.0) 05/15/19 07:57 RBC 5.12 M/mm3 (3.60-5.2) 05/15/19 07:57 Hgb 13.2 GM/dL (10.7-15.3) 05/15/19 07:57 Hct 40.2 % (32.4-45.2) D 05/15/19 07:57 MCV 78.5 fl (80-96) L 05/15/19 07:57 MCHC 32.9 g/dl (32.0-36.0) 05/15/19 07:57 RDW 15.1 % (11.6-15.6) 05/15/19 07:57 Plt Count 256 K/MM3 (134-434) 05/15/19 07:57 MPV 6.8 fl (7.5-11.1) L 05/15/19 07:57 CMP Sodium 138 mmol/L (136-145) 05/15/19 07:57 Potassium 4.1 mmol/L (3.5-5.1) 05/15/19 07:57 Chloride 105 mmol/L (98-107) 05/15/19 07:57 Carbon Dioxide 25 mmol/L (21-32) 05/15/19 07:57 Anion Gap 9 MMOL/L (8-16) 05/15/19 07:57 BUN 22.2 mg/dL (7-18) H 05/15/19 07:57 Creatinine 0.7 mg/dL (0.55-1.3) 05/15/19 07:57 Random Glucose 130 mg/dL (74-106) H 05/15/19 07:57 Calcium 9.0 mg/dL (8.5-10.1) 05/15/19 07:57 Total Bilirubin 0.8 mg/dL (0.2-1) 05/15/19 07:57 AST 10 U/L (15-37) L 05/15/19 07:57 ALT 21 U/L (13-61) 05/15/19 07:57 Alkaline Phosphatase 86 U/L (45-117) 05/15/19 07:57 Total Protein 6.3 g/dl (6.4-8.2) L 05/15/19 07:57 Albumin 3.4 g/dl (3.4-5.0) 05/15/19 07:57 CARDIAC ENZYMES Creatine Kinase 46 U/L (26-192) 05/14/19 14:40 Troponin I < 0.02 ng/ml (0.00-0.05) 05/14/19 14:40 Current Medications Generic Name Dose Route Start Last Admin Trade Name Freq PRN Reason Stop Dose Admin Albuterol Sulfate 1 amp 05/15/19 14:08 Ventolin 0.083% Nebulizer Soln - NEB Q4H PRN SHORT OF BREATH/WHEEZING Albuterol/Ipratropium 1 amp 05/15/19 16:00 05/17/19 08:17 Duoneb - NEB 1 amp RQID [facility]ANCY Administration Atorvastatin Calcium 20 mg 05/15/19 22:00 05/16/19 22:32 Lipitor - PO 20 mg HS NANCY Administration Budesonide/Formoterol Fumarate 2 puff 05/15/19 22:00 05/17/19 09:45 Symbicort 160/4.5mcg - IH 2 puff BID NANCY Administration Sodium Chloride 1,000 mls @ 75 mls/hr 05/14/19 20:45 05/16/19 22:33 Normal Saline - IV 75 mls/hr ASDIR NANCY Administration Azithromycin 250 mg/ Dextrose 250 mls @ 250 mls/hr 05/15/19 10:00 05/17/19 11 :19 IVPB 250 mls/hr DAILY NANCY Administration Ceftriaxone Sodium 1 gm/ 50 mls @ 100 mls/hr 05/14/19 21:30 05/17/19 09:46 Dextrose IVPB 100 mls/hr DAILY [facility]ANCY Administration Methylprednisolone Sodium Succinate 40 mg 05/15/19 02:00 05/17/19 09:46 Solu-Medrol - IVPUSH 40 mg Q8H-IV NANCY Administration Verapamil HCl 240 mg 05/15/19 10:00 05/17/19 09:46 Calan Sr - PO 240 mg DAILY [facility]ANCY Administration Home Medications Medication Instructions Recorded Atorvastatin Calcium [Lipitor] 20 mg PO HS 05/14/19 Budesonide/Formeterol Fumarate 2 inhaler IN BID 05/14/19 [SYMBICORT 160/4.5mcg -] Verapamil HCl ER [Calan Sr -] 240 mg PO DAILY 05/14/19 Albuterol 0.083% Nebulizer Julia 1 amp NEB Q4H PRN #25 amp 05/17/19 [Ventolin 0.083% Nebulizer Soln -] Albuterol 2.5/Ipratropium 0.5 1 amp NEB RQID #25 amp 05/17/19 [Duoneb -] Assessment and plan: Patient is a 64 y/o female with PMHx HTN, HLD, COPD and an active smoker presented with SOb with worsening symptoms x 1 month. #Acute COPD Exacerbation on neb. treatment , IV medrol ,symbicort inh, O2 to keep SpO2>90%, continue with tapered dose of prednisone prednisone taper: 40mg x 10d, 30mg x5 ,20mg x5,10mg x5 #Acute Bronchitis: s/p IV Rocephin/zithromax #HTN continue meds #Hyperlipidemia continue lipitor #Smoking dependency: smoking cessation discussed, offered nicotine patch but patient refused # Capillary fragility syndrome : refusing Ac DVT: pt would like to defer subcutaneous Lovenox , agrees to ambulate frequently , since was diagnosed with capillary fragility syndrome ,she is mobile , refusing AC discharge patient home
[2019-05-17 14:47] VITALS: BP 124/54
== END 2019-05-17 15:30 | disposition home or self-care (01) | DRG 192 ==
LOC: JER 12:32 → JERBED 18:15 → J5S 21:08
PROVIDERS: ADMIT Internal Medicine; ATTEND Internal Medicine
DX: J44.1 Chronic obstructive pulmonary disease with (acute) exacerbation (principal); J06.9 Acute upper respiratory infection, unspecified; I10 Essential (primary) hypertension; E78.5 Hyperlipidemia, unspecified; D72.829 Elevated white blood cell count, unspecified; J20.9 Acute bronchitis, unspecified; F17.210 Nicotine dependence, cigarettes, uncomplicated
CPT/HCPCS: 36415; 71046-TC-FY; 80053; 81003; 82550; 83735; 83880; 84100; 84484; 85025; 85027; 85610; 87086; 87804; 87899; 93005; 93010; 94640; 99283-25; J7030

== ENCOUNTER 2021-03-22 12:33 | Inpatient (IN) | payer OTHER ==
[2021-03-22] MEDS ORDERED: ALBUTEROL SO4 2.5/IPRATROPIUM 0.5 INH SOL 3 ML VIAL.NEB. NEB ONE ×3 (15:12→21:51)
[2021-03-22] MEDS ORDERED: methylPREDNISolone NA SUCC 40 MG/1 ML VIAL IVPUSH ONE (15:13)
[2021-03-22] MEDS ORDERED: methylPREDNISolone NA SUCC 40 MG/1 ML VIAL ONE (15:44)
[2021-03-22 17:05] LABS: BASO % 0.6 % (0-2.0); EOS % 0.8 % (0-4.5); HEMATOCRIT 41.3 % (32.4-45.2); HEMOGLOBIN 14.1 GM/dL (10.7-15.3); MCH 26.8 pg (25.7-33.7); MCHC 34.2 g/dl (32.0-36.0); MEAN CELL VOLUME 78.5 fl (80-96); MEAN PLT VOLUME 6.5 fl (7.5-11.1); MONO % 7.4 % (3.8-10.2); NEUT % 61.2 % (42.8-82.8); PLATELET COUNT 232 10^3/uL (134-434); RBC 5.26 M/mm3 (3.60-5.2); RDW 13.6 % (11.6-15.6); WHITE BLOOD COUNT 9.9 K/mm3 (4.0-10.0)
[2021-03-22 17:23] LABS: ALBUMIN 3.2 g/dl (3.4-5.0); BLOOD UREA NITROGEN 15.4 mg/dL (7-18); CALCIUM 7.4 mg/dL (8.5-10.1)
[2021-03-22 17:27] LABS: CREATININE 0.6 mg/dL (0.55-1.3)
[2021-03-22 17:28] LABS: BILIRUBIN,TOTAL 0.5 mg/dL (0.2-1); TOT PROT 5.9 g/dl (6.4-8.2)
[2021-03-22 17:31] LABS: N-TERMINAL BNP 70.9 pg/ml (5-125)
[2021-03-22] MEDS ORDERED: CEFTRIAXONE 1,000 MG in DEXTROSE 5%-WATER - 50 ML IVPB ONE (18:29)
[2021-03-22] MEDS ORDERED: POTASSIUM CHLORIDE TABS 20 MEQ TABLET.ER (FP) PO ONE ×2 (19:45→20:14)
[2021-03-22] MEDS ORDERED: ATORVASTATIN CA 20 MG TABLET (FP) ONE (20:14)
[2021-03-22] MEDS ORDERED: AZITHROMYCIN IVPB 500 MG/250 ML BAG IVPB ONE (20:15)
[2021-03-22] MEDS ORDERED: KCL 10 MEQ IVPB 10 MEQ/100 ML INFUS.BAG IVPB ONE ×2 (20:15→21:51)
[2021-03-22 20:21] LABS: MAGNESIUM 1.7 mg/dL (1.8-2.4)
[2021-03-22] MEDS: AZITHROMYCIN IVPB 500 MG/250 ML BAG IVPB SCH (20:33)
[2021-03-22] MEDS: KCL 10 MEQ IVPB 10 MEQ/100 ML INFUS.BAG IVPB SCH ×2 (20:33→21:50)
[2021-03-22] MEDS ORDERED: MAGNESIUM 2GM/50ML STERILE WATER IVPB IVPB ONE (20:37)
[2021-03-22] MEDS ORDERED: MAGNESIUM SULFATE IN WATER 2 GM/50 ML IVPB IVPB ONE (20:42)
[2021-03-22] MEDS: BUDESONIDE/FORMETEROL FUMARATE 160/4.5 mcg INHALER IH SCH (21:59)
[2021-03-22] MEDS: ALBUTEROL SO4 2.5/IPRATROPIUM 0.5 INH SOL 3 ML VIAL.NEB. NEB SCH (21:59)
[2021-03-22] MEDS: NICOTINE 7 MG/24 HOURS TOPICAL PATCH TD SCH (21:59)
[2021-03-22] MEDS ORDERED: ATORVASTATIN CA 20 MG TABLET (FP) PO SCH (22:00)
[2021-03-22] MEDS ORDERED: LISINOPRIL 5 MG TABLET PO SCH (22:00)
[2021-03-22 22:41] LABS: PH,URINE 5.5 (5.0-8.0); URINE APPEARANCE CLEAR; URINE BILIRUBIN NEGATIVE (NEGATIVE); URINE COLOR YELLOW; URINE GLUCOSE (UA) NEGATIVE (NEGATIVE); URINE KETONE NEGATIVE (NEGATIVE); URINE PROTEIN NEGATIVE (NEGATIVE)
[2021-03-22 22:42] LABS: URINE LEUK ESTERASE TRACE (NEGATIVE); URINE NITRITE NEGATIVE (NEGATIVE); URINE UROBILINOGEN 0.2 mg/dL (0.2-1.0)
[2021-03-22 23:36] LABS: URINE RBC 0 /uL (0-23.9)
[2021-03-22 23:37] LABS: URINE BACTERIA FEW /uL (0-1359)
[2021-03-23 00:10] VITALS: BMI 27.6
[2021-03-23] MEDS: methylPREDNISolone NA SUCC 40 MG/1 ML VIAL IVPUSH SCH ×2 (01:31→11:02)
[2021-03-23 08:00] VITALS: TEMP 97.9
[2021-03-23] MEDS ORDERED: ACETAMINOPHEN 325 MG TABLET (FP) PO PRN (08:14)
[2021-03-23] MEDS: ALBUTEROL SO4 2.5/IPRATROPIUM 0.5 INH SOL 3 ML VIAL.NEB. NEB SCH ×2 (08:55→11:36)
[2021-03-23 09:11] LABS: BASO % 0.2 % (0-2.0); HEMATOCRIT 38.8 % (32.4-45.2); HEMOGLOBIN 13.4 GM/dL (10.7-15.3); LYMPH % 15.4 % (8-40); MCH 26.8 pg (25.7-33.7); MCHC 34.5 g/dl (32.0-36.0); MEAN CELL VOLUME 77.8 fl (80-96); MEAN PLT VOLUME 6.9 fl (7.5-11.1); MONO % 2.2 % (3.8-10.2); NEUT % 82.2 % (42.8-82.8); PLATELET COUNT 237 10^3/uL (134-434); RBC 4.98 M/mm3 (3.60-5.2); RDW 13.4 % (11.6-15.6); WHITE BLOOD COUNT 5.2 K/mm3 (4.0-10.0)
[2021-03-23 09:38] LABS: ALBUMIN 3.7 g/dl (3.4-5.0); BLOOD UREA NITROGEN 16.2 mg/dL (7-18); MAGNESIUM 2.5 mg/dL (1.8-2.4)
[2021-03-23 09:40] LABS: CREATININE 0.8 mg/dL (0.55-1.3); PHOSPHOROUS 4.5 mg/dL (2.5-4.9)
[2021-03-23 09:42] LABS: BILIRUBIN,TOTAL 0.6 mg/dL (0.2-1); TOT PROT 6.7 g/dl (6.4-8.2)
[2021-03-23 09:49] LABS: CALCIUM 9.4 mg/dL (8.5-10.1)
[2021-03-23] MEDS ORDERED: ENOXAPARIN NA (PORCINE) 40 MG/0.4 ML DISP.SYRIN SQ SCH (10:00)
[2021-03-23] MEDS ORDERED: CEFTRIAXONE 1 GM in DEXTROSE 5%-WATER - 50 ML IVPB SCH (10:00)
[2021-03-23] MEDS ORDERED: cefTRIAXone SODIUM 1 GM VIAL ONE (10:38)
[2021-03-23] MEDS ORDERED: DEXTROSE 5%-WATER - 50 ML IVPB ONE (10:38)
[2021-03-23] MEDS: AZITHROMYCIN IVPB 500 MG/250 ML BAG IVPB SCH (10:46)
[2021-03-23] MEDS: BUDESONIDE/FORMETEROL FUMARATE 160/4.5 mcg INHALER IH SCH (11:02)
[2021-03-23] MEDS: NICOTINE 7 MG/24 HOURS TOPICAL PATCH TD SCH (11:02)
[2021-03-23] MEDS ORDERED: VERAPAMIL HCL 240 MG E.R. TABLET PO SCH (11:15)
[2021-03-23 13:44] VITALS: BP 146/72; PULSE 80
== END 2021-03-23 15:51 | disposition home or self-care (01) | DRG 192 ==
LOC: JER 12:33 → JERBED 15:11 → J5S 23:33
PROVIDERS: ADMIT Internal Medicine; ATTEND Internal Medicine
DX: J44.1 Chronic obstructive pulmonary disease with (acute) exacerbation (principal); E87.6 Hypokalemia; E83.42 Hypomagnesemia; F17.210 Nicotine dependence, cigarettes, uncomplicated; E78.5 Hyperlipidemia, unspecified; I10 Essential (primary) hypertension
CPT/HCPCS: 36415; 71046-TC-FY; 80053; 81003; 83735; 83880; 84100; 85025; 87804; 87807; 87899; 93005; 93010; 94640; 99285-25; C9803; U0003; U0005

== ENCOUNTER 2022-04-17 08:28 | Emergency (ER) | payer OTHER ==
[2022-04-17 08:38] VITALS: BP 137/78; PULSE 78; RESP 19; TEMP 98.4; BMI 27.0
== END 2022-04-17 11:29 | disposition home or self-care (01) ==
LOC: JER 08:28
DX: J44.1 Chronic obstructive pulmonary disease with (acute) exacerbation (principal)
CPT/HCPCS: 71046-TC-FY; 99283-25

== ENCOUNTER 2022-05-23 18:49 | Inpatient (IN) | payer OTHER ==
[2022-05-23 19:09] VITALS: BMI 27.0
[2022-05-23] MEDS ORDERED: CEFTRIAXONE 1 GM in DEXTROSE 5%-WATER - 100 ML IVPB ONE (19:40)
[2022-05-23] MEDS ORDERED: SODIUM CHLORIDE 0.9% 1000 ML INFUS.BAG IV ONE (19:41)
[2022-05-23] MEDS ORDERED: methylPREDNISolone NA SUCC 125 MG/2 ML VIAL IVPUSH ONE (19:44)
[2022-05-23] MEDS ORDERED: CEFTRIAXONE 1 GM/50 ML BAG ONE (20:20)
[2022-05-23] MEDS ORDERED: methylPREDNISolone NA SUCC 125 MG/2 ML VIAL ONE (20:20)
[2022-05-23] MEDS ORDERED: ALBUTEROL SO4 2.5/IPRATROPIUM 0.5 INH SOL 3 ML VIAL.NEB. NEB ONE (20:20)
[2022-05-23] MEDS: ALBUTEROL SO4 2.5/IPRATROPIUM 0.5 INH SOL 3 ML VIAL.NEB. NEB SCH ×2 (20:49→22:07)
[2022-05-23 20:55] LABS: VENOUS BASE EXCESS 0.7 mmol/L (-2-2); VENOUS O2 SATURATION 91.4 % (70-80); VENOUS PCO2 37.8 mmHg (38-52); VENOUS PH 7.433 (7.310-7.410)
[2022-05-23 21:04] LABS: INR 1.13 (0.83-1.09)
[2022-05-23 21:07] LABS: ACTIVATED PTT 29.1 SECONDS (25.2-36.5)
[2022-05-23 21:38] LABS: BASO % 0.8 % (0-2.0); EOS % 0.1 % (0-4.5); HEMATOCRIT 38.7 % (32.4-45.2); HEMOGLOBIN 12.4 GM/dL (10.7-15.3); LYMPH % 7.4 % (8-40); MCH 25.5 pg (25.7-33.7); MEAN CELL VOLUME 79.5 fl (80-96); MEAN PLT VOLUME 6.7 fl (7.5-11.1); MONO % 4.4 % (3.8-10.2); NEUT % 87.3 % (42.8-82.8); PLATELET COUNT 185 10^3/uL (134-434); RBC 4.87 M/mm3 (3.60-5.2); RDW 14.5 % (11.6-15.6); WHITE BLOOD COUNT 14.1 K/mm3 (4.0-10.0)
[2022-05-23] MEDS ORDERED: ACETAMINOPHEN 1000 MG/100 ML BAG IVPB ONE (21:49)
[2022-05-23] MEDS ORDERED: ACETAMINOPHEN INJECTION 100 ML IVPB ONE (21:50)
[2022-05-23 21:53] LABS: CHLORIDE 97 mmol/L (98-107); SODIUM 132 mmol/L (136-145)
[2022-05-23 21:55] LABS: ALBUMIN 3.5 g/dl (3.4-5.0); ANION GAP 11 MMOL/L (8-16); BLOOD UREA NITROGEN 16.2 mg/dL (7-18); CALCIUM 8.5 mg/dL (8.5-10.1); CO2 24 mmol/L (21-32)
[2022-05-23 21:57] LABS: GLUCOSE,RANDOM 107 mg/dL (74-106)
[2022-05-23 21:58] LABS: CREATININE 0.9 mg/dL (0.55-1.3); SGOT/AST 18 U/L (15-37)
[2022-05-23 21:59] LABS: SGPT/ALT 25 U/L (13-61)
[2022-05-23 22:00] LABS: TOT PROT 6.6 g/dl (6.4-8.2)
[2022-05-23 22:02] LABS: ALK PHOS 79 U/L (45-117)
[2022-05-23 22:04] LABS: N-TERMINAL BNP 115.9 pg/ml (5-125)
[2022-05-24] MEDS: ALBUTEROL SO4 2.5/IPRATROPIUM 0.5 INH SOL 3 ML VIAL.NEB. NEB SCH ×5 (04:25→20:30)
[2022-05-24] MEDS: ENOXAPARIN NA (PORCINE) 40 MG/0.4 ML DISP.SYRIN SQ SCH ×2 (09:25→09:28)
[2022-05-24] MEDS: CEFTRIAXONE 1 GM in DEXTROSE 5%-WATER - 50 ML IVPB SCH (09:25)
[2022-05-24] MEDS: NICOTINE 21 MG/24 HOURS TOPICAL PATCH TD SCH ×2 (09:25→09:28)
[2022-05-24] MEDS ORDERED: AZITHROMYCIN IVPB 500 MG/250 ML BAG IVPB SCH (10:00)
[2022-05-24] MEDS ORDERED: BUDESONIDE/FORMETEROL FUMARATE 160/4.5 mcg INHALER IH SCH (10:00)
[2022-05-24] MEDS: methylPREDNISolone NA SUCC 40 MG/1 ML VIAL IVPUSH SCH ×2 (10:05→17:18)
[2022-05-24] MEDS: BUDESONIDE/FORMETEROL FUMARATE 160/4.5 mcg INHALER IH SCH ×2 (11:12→22:00)
[2022-05-24] MEDS: VERAPAMIL HCL 240 MG E.R. TABLET PO SCH (11:13)
[2022-05-24 17:30] LABS: EPI CELLS 17 /uL (0-25.1); HYALINE CASTS 9 /uL (0-3.1); URINE APPEARANCE CLEAR; URINE BACTERIA 1 /uL (0-1359); URINE BILIRUBIN NEGATIVE (NEGATIVE); URINE COLOR YELLOW; URINE GLUCOSE (UA) TRACE (NEGATIVE); URINE KETONE TRACE (NEGATIVE); URINE LEUK ESTERASE NEGATIVE (NEGATIVE); URINE NITRITE NEGATIVE (NEGATIVE); URINE PROTEIN 1+ (NEGATIVE); URINE RBC 19 /uL (0-23.9); URINE WBC 11 /uL (0-25.8)
[2022-05-24] MEDS: ATORVASTATIN CA 20 MG TABLET (FP) PO SCH (22:00)
[2022-05-25] MEDS: ALBUTEROL SO4 2.5/IPRATROPIUM 0.5 INH SOL 3 ML VIAL.NEB. NEB SCH ×7 (00:10→23:02)
[2022-05-25] MEDS: methylPREDNISolone NA SUCC 40 MG/1 ML VIAL IVPUSH SCH ×3 (03:05→18:20)
[2022-05-25] MEDS: NICOTINE 21 MG/24 HOURS TOPICAL PATCH TD SCH (09:38)
[2022-05-25] MEDS: ENOXAPARIN NA (PORCINE) 40 MG/0.4 ML DISP.SYRIN SQ SCH (09:38)
[2022-05-25 09:43] LABS: HEMATOCRIT 39.2 % (32.4-45.2); HEMOGLOBIN 12.6 GM/dL (10.7-15.3); MCH 25.3 pg (25.7-33.7); MCHC 32.1 g/dl (32.0-36.0); MEAN PLT VOLUME 7.4 fl (7.5-11.1); PLATELET COUNT 270 10^3/uL (134-434); RBC 4.96 M/mm3 (3.60-5.2); RDW 14.4 % (11.6-15.6); WHITE BLOOD COUNT 13.8 K/mm3 (4.0-10.0)
[2022-05-25] MEDS: VERAPAMIL HCL 240 MG E.R. TABLET PO SCH (09:44)
[2022-05-25] MEDS: CEFTRIAXONE 1 GM in DEXTROSE 5%-WATER - 50 ML IVPB SCH (09:44)
[2022-05-25] MEDS: BUDESONIDE/FORMETEROL FUMARATE 160/4.5 mcg INHALER IH SCH ×2 (09:44→22:11)
[2022-05-25] MEDS ORDERED: AZITHROMYCIN IVPB 250 MG in DEXTROSE 5%-WATER - 250 ML IVPB SCH (10:00)
[2022-05-25 10:04] LABS: ALBUMIN 3.3 g/dl (3.4-5.0)
[2022-05-25 10:06] LABS: BLOOD UREA NITROGEN 24.6 mg/dL (7-18); CALCIUM 9.4 mg/dL (8.5-10.1); MAGNESIUM 2.7 mg/dL (1.8-2.4)
[2022-05-25 10:09] LABS: PHOSPHOROUS 3.3 mg/dL (2.5-4.9)
[2022-05-25 10:10] LABS: BILIRUBIN,TOTAL 0.4 mg/dL (0.2-1); TOT PROT 6.4 g/dl (6.4-8.2)
[2022-05-25 10:34] LABS: ANISOCYTOSIS 1+; MACROCYTOSIS 0; OVALOCYTE 1+
[2022-05-25] MEDS: guaiFENesin 600 MG TABLET.ER (FP) PO SCH ×2 (13:37→22:11)
[2022-05-25] MEDS: ATORVASTATIN CA 20 MG TABLET (FP) PO SCH (22:11)
[2022-05-26] MEDS: methylPREDNISolone NA SUCC 40 MG/1 ML VIAL IVPUSH SCH ×3 (02:00→17:51)
[2022-05-26] MEDS: ALBUTEROL SO4 2.5/IPRATROPIUM 0.5 INH SOL 3 ML VIAL.NEB. NEB SCH ×5 (04:30→21:00)
[2022-05-26 09:35] LABS: EPI CELLS 23 /uL (0-25.1); HYALINE CASTS 1 /uL (0-3.1); PH,URINE 5.5 (5.0-8.0); URINE APPEARANCE CLEAR; URINE BACTERIA 1 /uL (0-1359); URINE BILIRUBIN NEGATIVE (NEGATIVE); URINE COLOR YELLOW; URINE GLUCOSE (UA) NEGATIVE (NEGATIVE); URINE KETONE NEGATIVE (NEGATIVE); URINE LEUK ESTERASE NEGATIVE (NEGATIVE); URINE NITRITE NEGATIVE (NEGATIVE); URINE PROTEIN 1+ (NEGATIVE); URINE RBC 18 /uL (0-23.9); URINE UROBILINOGEN 0.2 mg/dL (0.2-1.0); URINE WBC 7 /uL (0-25.8)
[2022-05-26] MEDS ORDERED: AZITHROMYCIN 500 MG TABLET PO SCH (10:00)
[2022-05-26] MEDS: VERAPAMIL HCL 240 MG E.R. TABLET PO SCH (11:06)
[2022-05-26] MEDS: NICOTINE 21 MG/24 HOURS TOPICAL PATCH TD SCH (11:06)
[2022-05-26] MEDS: ENOXAPARIN NA (PORCINE) 40 MG/0.4 ML DISP.SYRIN SQ SCH (11:06)
[2022-05-26] MEDS: guaiFENesin 600 MG TABLET.ER (FP) PO SCH ×2 (11:06→21:37)
[2022-05-26] MEDS: AZITHROMYCIN 250 MG TABLET PO SCH (11:07)
[2022-05-26] MEDS: BUDESONIDE/FORMETEROL FUMARATE 160/4.5 mcg INHALER IH SCH ×2 (11:07→21:35)
[2022-05-26] MEDS: ATORVASTATIN CA 20 MG TABLET (FP) PO SCH (21:37)
[2022-05-27] MEDS: ALBUTEROL SO4 2.5/IPRATROPIUM 0.5 INH SOL 3 ML VIAL.NEB. NEB SCH ×7 (00:14→23:24)
[2022-05-27] MEDS: methylPREDNISolone NA SUCC 40 MG/1 ML VIAL IVPUSH SCH ×2 (01:28→09:16)
[2022-05-27] MEDS: VERAPAMIL HCL 240 MG E.R. TABLET PO SCH (09:16)
[2022-05-27] MEDS: AZITHROMYCIN 250 MG TABLET PO SCH (09:16)
[2022-05-27] MEDS: guaiFENesin 600 MG TABLET.ER (FP) PO SCH ×2 (09:16→21:39)
[2022-05-27] MEDS: NICOTINE 21 MG/24 HOURS TOPICAL PATCH TD SCH (09:17)
[2022-05-27] MEDS: ENOXAPARIN NA (PORCINE) 40 MG/0.4 ML DISP.SYRIN SQ SCH (09:17)
[2022-05-27] MEDS: BUDESONIDE/FORMETEROL FUMARATE 160/4.5 mcg INHALER IH SCH ×2 (09:18→21:39)
[2022-05-27 10:53] LABS: HEMATOCRIT 37.9 % (32.4-45.2); HEMOGLOBIN 12.4 GM/dL (10.7-15.3); MCH 25.8 pg (25.7-33.7); MCHC 32.6 g/dl (32.0-36.0); MEAN CELL VOLUME 79.1 fl (80-96); MEAN PLT VOLUME 6.7 fl (7.5-11.1); PLATELET COUNT 275 10^3/uL (134-434); RBC 4.79 M/mm3 (3.60-5.2); RDW 13.8 % (11.6-15.6); WHITE BLOOD COUNT 9.5 K/mm3 (4.0-10.0)
[2022-05-27 11:17] LABS: CALCIUM 9.2 mg/dL (8.5-10.1)
[2022-05-27 11:18] LABS: ALBUMIN 3.2 g/dl (3.4-5.0); BLOOD UREA NITROGEN 28.1 mg/dL (7-18); MAGNESIUM 2.6 mg/dL (1.8-2.4)
[2022-05-27 11:21] LABS: PHOSPHOROUS 3.4 mg/dL (2.5-4.9)
[2022-05-27 11:22] LABS: TOT PROT 6.2 g/dl (6.4-8.2)
[2022-05-27 11:23] LABS: BILIRUBIN,TOTAL 0.5 mg/dL (0.2-1)
[2022-05-27 14:35] VITALS: RESP 18
[2022-05-27] MEDS: ATORVASTATIN CA 20 MG TABLET (FP) PO SCH (21:39)
[2022-05-28] MEDS: ALBUTEROL SO4 2.5/IPRATROPIUM 0.5 INH SOL 3 ML VIAL.NEB. NEB SCH ×4 (04:57→15:28)
[2022-05-28] MEDS: guaiFENesin 600 MG TABLET.ER (FP) PO SCH (09:22)
[2022-05-28] MEDS: VERAPAMIL HCL 240 MG E.R. TABLET PO SCH (09:23)
[2022-05-28] MEDS: BUDESONIDE/FORMETEROL FUMARATE 160/4.5 mcg INHALER IH SCH (09:23)
[2022-05-28] MEDS: ENOXAPARIN NA (PORCINE) 40 MG/0.4 ML DISP.SYRIN SQ SCH (09:25)
[2022-05-28] MEDS: NICOTINE 21 MG/24 HOURS TOPICAL PATCH TD SCH (09:26)
[2022-05-28] MEDS ORDERED: predniSONE 20 MG TABLET (UD) PO SCH (10:00)
[2022-05-28] MEDS ORDERED: AZITHROMYCIN 250 MG TABLET PO ONE (15:08)
[2022-05-28 15:19] VITALS: BP 135/64; PULSE 70; TEMP 98.4
== END 2022-05-28 17:40 | disposition home or self-care (01) | DRG 190 ==
LOC: JER 18:49 → JERBED 22:04 → J5S 05-24 04:38
PROVIDERS: ADMIT Internal Medicine; ATTEND Internal Medicine
DX: J44.0 Chronic obstructive pulmonary disease with (acute) lower respiratory infection (principal); J18.9 Pneumonia, unspecified organism; J96.01 Acute respiratory failure with hypoxia; E87.1 Hypo-osmolality and hyponatremia; J44.1 Chronic obstructive pulmonary disease with (acute) exacerbation; I10 Essential (primary) hypertension; E78.5 Hyperlipidemia, unspecified; R50.9 Fever, unspecified; F17.210 Nicotine dependence, cigarettes, uncomplicated; R91.1 Solitary pulmonary nodule; R00.0 Tachycardia, unspecified; D72.829 Elevated white blood cell count, unspecified
CPT/HCPCS: 0241U-QW; 36415; 71045-TC-FY; 71250-TC; 80048; 80053; 81003; 82553; 82803; 83605; 83735; 83880; 84100; 84484; 85025; 85027; 85610; 85730; 86850; 86900; 86901; 87040; 87086; 87899; 93005; 93010; 94640; 94761; 99285-25

== ENCOUNTER 2023-03-15 08:58 | Inpatient (IN) | payer OTHER ==
[2023-03-15 10:46] LABS: BASO % 0.9 % (0-2.0); EOS % 0.9 % (0-4.5); HEMATOCRIT 43.6 % (32.4-45.2); LYMPH % 22.8 % (8-40); MCH 25.7 pg (25.7-33.7); MCHC 32.2 g/dl (32.0-36.0); MEAN CELL VOLUME 79.8 fl (80-96); MEAN PLT VOLUME 6.5 fl (7.5-11.1); MONO % 7.6 % (3.8-10.2); NEUT % 67.8 % (42.8-82.8); PLATELET COUNT 286 10^3/uL (134-434); RBC 5.46 M/mm3 (3.60-5.2); RDW 13.9 % (11.6-15.6); WHITE BLOOD COUNT 15.6 K/mm3 (4.0-10.0)
[2023-03-15] MEDS: ALBUTEROL SO4 2.5/IPRATROPIUM 0.5 INH SOL 3 ML VIAL.NEB. NEB SCH ×5 (10:49→20:08)
[2023-03-15] MEDS ORDERED: ALBUTEROL SO4 2.5/IPRATROPIUM 0.5 INH SOL 3 ML VIAL.NEB. NEB ONE ×3 (10:49→20:07)
[2023-03-15 10:53] LABS: VENOUS BASE EXCESS 1.4 mmol/L (-2-2); VENOUS O2 SATURATION 80.2 % (70-80); VENOUS PH 7.406 (7.310-7.410)
[2023-03-15 11:05] LABS: POTASSIUM 3.9 mmol/L (3.5-5.1)
[2023-03-15 11:09] LABS: CALCIUM 9.1 mg/dL (8.5-10.1)
[2023-03-15 11:13] LABS: CREATININE 0.8 mg/dL (0.55-1.3)
[2023-03-15 11:14] LABS: TOT PROT 6.6 g/dl (6.4-8.2)
[2023-03-15 11:15] LABS: BILIRUBIN,TOTAL 0.6 mg/dL (0.2-1)
[2023-03-15] MEDS ORDERED: CEFTRIAXONE 1 GM in DEXTROSE 5%-WATER - 50 ML IVPB ONE (12:15)
[2023-03-15] MEDS ORDERED: methylPREDNISolone NA SUCC 125 MG/2 ML VIAL IVPB ONE (12:15)
[2023-03-15] MEDS ORDERED: CEFTRIAXONE 1 GM/50 ML BAG ONE (12:31)
[2023-03-15] MEDS ORDERED: methylPREDNISolone NA SUCC 125 MG/2 ML VIAL ONE (12:31)
[2023-03-15] MEDS ORDERED: ACETAMINOPHEN 325 MG TABLET (FP) PO PRN (13:29)
[2023-03-15] MEDS ORDERED: LACTATED RINGERS SOLUTION 1,000 ML IV SCH (13:30)
[2023-03-15] MEDS ORDERED: methylPREDNISolone NA SUCC 40 MG/1 ML VIAL ONE (15:33)
[2023-03-15] MEDS: methylPREDNISolone NA SUCC 40 MG/1 ML VIAL IVPUSH SCH (17:50)
[2023-03-15] MEDS ORDERED: ATORVASTATIN CA 20 MG TABLET (FP) ONE (21:24)
[2023-03-15] MEDS: ATORVASTATIN CA 20 MG TABLET (FP) PO SCH (21:25)
[2023-03-16 04:02] VITALS: BMI 25.3
[2023-03-16] MEDS: ALBUTEROL SO4 2.5/IPRATROPIUM 0.5 INH SOL 3 ML VIAL.NEB. NEB SCH (07:36)
[2023-03-16] MEDS: methylPREDNISolone NA SUCC 40 MG/1 ML VIAL IVPUSH SCH ×2 (07:41→18:06)
[2023-03-16 08:54] LABS: INR 0.96 (0.83-1.09); PROTHROMBIN TIME (PATIENT) 11.1 SEC (9.7-13.0)
[2023-03-16 08:56] LABS: ACTIVATED PTT 22.8 SECONDS (25.2-36.5)
[2023-03-16 09:01] LABS: BASO % 0.2 % (0-2.0); HEMATOCRIT 38.2 % (32.4-45.2); HEMOGLOBIN 13.4 GM/dL (10.7-15.3); LYMPH % 8.6 % (8-40); MCH 27.4 pg (25.7-33.7); MCHC 35.2 g/dl (32.0-36.0); MEAN CELL VOLUME 77.9 fl (80-96); MEAN PLT VOLUME 6.6 fl (7.5-11.1); MONO % 5.6 % (3.8-10.2); NEUT % 85.6 % (42.8-82.8); PLATELET COUNT 246 10^3/uL (134-434); RDW 13.7 % (11.6-15.6); WHITE BLOOD COUNT 13.1 K/mm3 (4.0-10.0)
[2023-03-16 09:03] LABS: POTASSIUM 4.4 mmol/L (3.5-5.1)
[2023-03-16 09:12] LABS: CALCIUM 8.9 mg/dL (8.5-10.1)
[2023-03-16 09:13] LABS: ALBUMIN 3.6 g/dl (3.4-5.0); BLOOD UREA NITROGEN 22.1 mg/dL (7-18)
[2023-03-16 09:16] LABS: CREATININE 0.8 mg/dL (0.55-1.3); MAGNESIUM 2.3 mg/dL (1.8-2.4); PHOSPHOROUS 3.8 mg/dL (2.5-4.9)
[2023-03-16 09:17] LABS: BILIRUBIN,TOTAL 0.7 mg/dL (0.2-1); TOT PROT 6.3 g/dl (6.4-8.2)
[2023-03-16] MEDS ORDERED: AZITHROMYCIN IVPB 500 MG/250 ML BAG IVPB ONE (10:00)
[2023-03-16] MEDS ORDERED: CEFTRIAXONE 1 GM in DEXTROSE 5%-WATER - 50 ML IVPB ONE ×2 (10:00→10:17)
[2023-03-16] MEDS: PANTOPRAZOLE 40 MG TABLET PO SCH (10:08)
[2023-03-16] MEDS: VERAPAMIL HCL 240 MG E.R. TABLET PO SCH (10:08)
[2023-03-16] MEDS: ENOXAPARIN NA (PORCINE) 40 MG/0.4 ML DISP.SYRIN SQ SCH (10:09)
[2023-03-16] MEDS: BUDESONIDE/FORMETEROL FUMARATE 160/4.5 mcg INHALER IH SCH ×3 (10:12→22:38)
[2023-03-16] MEDS: TIOTROPIUM BROMIDE 2.5 MCG (SPIRIVA) RESPIMAT INHALER IH SCH (10:47)
[2023-03-16] MEDS ORDERED: LEVALBUTEROL HCL 0.31 MG/3 ML VIAL.NEB IH PRN (11:34)
[2023-03-16] MEDS ORDERED: ALBUTEROL SO4 2.5/IPRATROPIUM 0.5 INH SOL 3 ML VIAL.NEB. NEB PRN (14:00)
[2023-03-16] MEDS: ACETYLCYSTEINE 20% 200MG/ML 4 ML VIAL *FOR ORAL / INH USE ONLY NEB SCH ×2 (14:57→20:48)
[2023-03-16] MEDS: LEVALBUTEROL HCL 0.63 MG/3 ML VIAL.NEB. IH SCH ×2 (14:57→20:49)
[2023-03-16] MEDS: ATORVASTATIN CA 20 MG TABLET (FP) PO SCH (21:37)
[2023-03-17] MEDS: methylPREDNISolone NA SUCC 40 MG/1 ML VIAL IVPUSH SCH (06:03)
[2023-03-17] MEDS: ACETYLCYSTEINE 20% 200MG/ML 4 ML VIAL *FOR ORAL / INH USE ONLY NEB SCH ×3 (08:08→20:22)
[2023-03-17] MEDS: LEVALBUTEROL HCL 0.63 MG/3 ML VIAL.NEB. IH SCH ×3 (08:10→20:23)
[2023-03-17] MEDS: PANTOPRAZOLE 40 MG TABLET PO SCH (09:20)
[2023-03-17] MEDS: VERAPAMIL HCL 240 MG E.R. TABLET PO SCH (09:20)
[2023-03-17] MEDS: ENOXAPARIN NA (PORCINE) 40 MG/0.4 ML DISP.SYRIN SQ SCH (09:21)
[2023-03-17] MEDS: AZITHROMYCIN IVPB 500 MG/250 ML BAG IVPB SCH (09:21)
[2023-03-17] MEDS: BUDESONIDE/FORMETEROL FUMARATE 160/4.5 mcg INHALER IH SCH ×2 (09:30→21:05)
[2023-03-17 09:52] LABS: HEMATOCRIT 40.5 % (32.4-45.2); HEMOGLOBIN 13.4 GM/dL (10.7-15.3); MCH 26.5 pg (25.7-33.7); MCHC 33.2 g/dl (32.0-36.0); MEAN CELL VOLUME 79.8 fl (80-96); MEAN PLT VOLUME 6.5 fl (7.5-11.1); PLATELET COUNT 263 10^3/uL (134-434); RBC 5.07 M/mm3 (3.60-5.2); RDW 13.7 % (11.6-15.6); WHITE BLOOD COUNT 16.7 K/mm3 (4.0-10.0)
[2023-03-17 10:13] LABS: POTASSIUM 4.3 mmol/L (3.5-5.1)
[2023-03-17 10:19] LABS: ALBUMIN 3.7 g/dl (3.4-5.0); CALCIUM 8.8 mg/dL (8.5-10.1)
[2023-03-17 10:20] LABS: BLOOD UREA NITROGEN 28.9 mg/dL (7-18); MAGNESIUM 2.2 mg/dL (1.8-2.4)
[2023-03-17 10:24] LABS: BILIRUBIN,TOTAL 0.6 mg/dL (0.2-1); TOT PROT 6.3 g/dl (6.4-8.2)
[2023-03-17 10:33] LABS: CREATININE 0.9 mg/dL (0.55-1.3)
[2023-03-17 10:39] LABS: ANISOCYTOSIS 0
[2023-03-17] MEDS: TIOTROPIUM BROMIDE 2.5 MCG (SPIRIVA) RESPIMAT INHALER IH SCH (12:55)
[2023-03-17] MEDS: ATORVASTATIN CA 20 MG TABLET (FP) PO SCH (21:05)
[2023-03-18 07:48] LABS: BASO % 0.3 % (0-2.0); EOS % 0.2 % (0-4.5); HEMATOCRIT 41.4 % (32.4-45.2); HEMOGLOBIN 13.8 GM/dL (10.7-15.3); LYMPH % 18.7 % (8-40); MCH 26.2 pg (25.7-33.7); MCHC 33.4 g/dl (32.0-36.0); MEAN CELL VOLUME 78.5 fl (80-96); MEAN PLT VOLUME 6.6 fl (7.5-11.1); NEUT % 72.8 % (42.8-82.8); PLATELET COUNT 239 10^3/uL (134-434); RBC 5.27 M/mm3 (3.60-5.2); RDW 13.8 % (11.6-15.6); WHITE BLOOD COUNT 13.3 K/mm3 (4.0-10.0)
[2023-03-18 08:00] LABS: POTASSIUM 3.8 mmol/L (3.5-5.1)
[2023-03-18 08:02] LABS: CALCIUM 8.1 mg/dL (8.5-10.1)
[2023-03-18 08:03] LABS: ALBUMIN 3.3 g/dl (3.4-5.0); BLOOD UREA NITROGEN 27.4 mg/dL (7-18); MAGNESIUM 2.3 mg/dL (1.8-2.4)
[2023-03-18 08:06] LABS: CREATININE 0.7 mg/dL (0.55-1.3)
[2023-03-18 08:07] LABS: BILIRUBIN,TOTAL 0.6 mg/dL (0.2-1)
[2023-03-18 08:08] LABS: TOT PROT 5.6 g/dl (6.4-8.2)
[2023-03-18] MEDS: ACETYLCYSTEINE 20% 200MG/ML 4 ML VIAL *FOR ORAL / INH USE ONLY NEB SCH ×2 (08:15→14:34)
[2023-03-18] MEDS: LEVALBUTEROL HCL 0.63 MG/3 ML VIAL.NEB. IH SCH ×2 (08:15→14:34)
[2023-03-18] MEDS: TIOTROPIUM BROMIDE 2.5 MCG (SPIRIVA) RESPIMAT INHALER IH SCH (09:43)
[2023-03-18] MEDS: ENOXAPARIN NA (PORCINE) 40 MG/0.4 ML DISP.SYRIN SQ SCH ×2 (09:45→09:49)
[2023-03-18] MEDS: PANTOPRAZOLE 40 MG TABLET PO SCH (09:45)
[2023-03-18] MEDS: VERAPAMIL HCL 240 MG E.R. TABLET PO SCH (09:45)
[2023-03-18] MEDS: AZITHROMYCIN IVPB 500 MG/250 ML BAG IVPB SCH (09:47)
[2023-03-18] MEDS: BUDESONIDE/FORMETEROL FUMARATE 160/4.5 mcg INHALER IH SCH (09:51)
[2023-03-18 09:53] VITALS: TEMP 98.3
[2023-03-18] MEDS ORDERED: methylPREDNISolone NA SUCC 40 MG/1 ML VIAL IVPUSH SCH (10:00)
[2023-03-18 15:05] VITALS: BP 123/54; PULSE 60; RESP 16
== END 2023-03-18 18:10 | disposition home or self-care (01) | DRG 192 ==
LOC: JER 08:58 → JERBED 13:17 → J8W 21:55
PROVIDERS: ADMIT Internal Medicine; ATTEND Nurse Practitioner Family
DX: J44.1 Chronic obstructive pulmonary disease with (acute) exacerbation (principal); I10 Essential (primary) hypertension; E78.5 Hyperlipidemia, unspecified; J20.9 Acute bronchitis, unspecified
CPT/HCPCS: 0241U-QW; 36415; 71045-TC-FY; 80053; 82803; 83735; 84100; 84484; 85025; 85610; 85730; 87070; 87205; 93005; 93010; 94010; 94640; 94761; 99285-25

== ENCOUNTER 2024-01-08 06:22 | Emergency (ER) | payer OTHER ==
[2024-01-08 06:31] VITALS: RESP 22; TEMP 97.6; BMI 22.6
[2024-01-08] MEDS ORDERED: AZITHROMYCIN 500 MG TABLET ONE (07:39)
[2024-01-08] MEDS ORDERED: ALBUTEROL SO4 2.5/IPRATROPIUM 0.5 INH SOL 3 ML VIAL.NEB. NEB ONE (07:39)
[2024-01-08] MEDS ORDERED: predniSONE 20 MG TABLET (UD) ONE (07:39)
[2024-01-08] MEDS: ALBUTEROL SO4 2.5/IPRATROPIUM 0.5 INH SOL 3 ML VIAL.NEB. NEB SCH (07:45)
[2024-01-08] MEDS: AZITHROMYCIN 250 MG TABLET PO ONE (08:16)
[2024-01-08 08:18] LABS: VENOUS BASE EXCESS 0.2 mmol/L (-2-2); VENOUS O2 SATURATION 16.6 % (70-80); VENOUS PCO2 51.7 mmHg (38-52); VENOUS PH 7.336 (7.310-7.410)
[2024-01-08 08:26] LABS: BASO % 0.2 % (0-2.0); EOS % 0.1 % (0-4.5); HEMATOCRIT 44.7 % (32.4-45.2); HEMOGLOBIN 15.1 GM/dL (10.7-15.3); LYMPH % 14.3 % (8-40); MCH 26.3 pg (25.7-33.7); MCHC 33.7 g/dl (32.0-36.0); MEAN PLT VOLUME 6.6 fl (7.5-11.1); MONO % 6.5 % (3.8-10.2); NEUT % 78.9 % (42.8-82.8); PLATELET COUNT 303 10^3/uL (134-434); RBC 5.73 M/mm3 (3.60-5.2); RDW 14.1 % (11.6-15.6); WHITE BLOOD COUNT 14.3 K/mm3 (4.0-10.0)
[2024-01-08 08:50] LABS: POTASSIUM 4.1 mmol/L (3.5-5.1)
[2024-01-08 08:52] LABS: CALCIUM 9.3 mg/dL (8.5-10.1)
[2024-01-08 08:56] LABS: CREATININE 0.9 mg/dL (0.55-1.3)
[2024-01-08 08:57] LABS: BILIRUBIN,TOTAL 0.5 mg/dL (0.2-1)
[2024-01-08] MEDS: predniSONE 20 MG TABLET (UD) PO SCH (09:01)
[2024-01-08 13:00] VITALS: BP 117/47; PULSE 86
== END 2024-01-08 13:50 | disposition home or self-care (01) ==
LOC: JER 06:22
PROC: 3E0F7GC Introduction of Other Therapeutic Substance into Respiratory Tract, Via Natural or Artificial Opening (ICD-10-PCS; principal; 2024-01-08)
DX: J44.1 Chronic obstructive pulmonary disease with (acute) exacerbation (principal); R06.2 Wheezing; R05.9 Cough, unspecified; Z87.891 Personal history of nicotine dependence
CPT/HCPCS: 36415; 71046-TC-FY; 80053; 82803; 84484; 85025; 99285-25